=== PATIENT | female | born 1980 ===

== ENCOUNTER 2019-12-23 10:46 | Outpatient (REF) | payer OTHER, SELFPAY ==
[2019-12-24 09:34] LABS: CT PCR NOT DETECTED (Not Detect.); NG PCR NOT DETECTED (Not Detect.)
[2019-12-24 09:54] LABS: BV Int Neg Control Negative (Negative); BV Int Pos Control Positive (Positive)
[2019-12-29 22:51] LABS: HPV 16 RNA NOT DETECTED (NOT DETECTED); HPV mRNA E6/E7 rflx Detected (Not Detected)
== END 2019-12-23 10:47 | disposition home or self-care (01) ==
LOC: HO.LAB 10:46
PROVIDERS: PCP Pediatrics; Visit Provider Obstetrics & Gynecology
DX: Z01.419 Encounter for gynecological examination (general) (routine) without abnormal findings (principal); Z11.3 Encounter for screening for infections with a predominantly sexual mode of transmission; Z97.5 Presence of (intrauterine) contraceptive device
CPT/HCPCS: 87480; 87491; 87510; 87591; 87624; 87625; 87660; 88141; 88142

== ENCOUNTER 2020-06-22 10:03 | Outpatient (REF) | payer OTHER, SELFPAY | END 2020-06-22 10:04 | disposition home or self-care (01) | LOC: HO.LAB 10:03 | PROVIDERS: PCP Pediatrics; Visit Provider Obstetrics & Gynecology | DX: R87.810 Cervical high risk human papillomavirus (HPV) DNA test positive (principal); R87.610 Atypical squamous cells of undetermined significance on cytologic smear of cervix (ASC-US) | CPT/HCPCS: 57454; 81025; 88305; 88342; 88360 ==

== ENCOUNTER → 2020-06-29 11:00 | Outpatient (BNVA) | payer OTHER, SELFPAY | PROVIDERS: PCP Pediatrics; Visit Provider Obstetrics & Gynecology | DX: N87.0 Mild cervical dysplasia (principal) | CPT/HCPCS: Q3014 ==

== ENCOUNTER 2020-07-08 08:16 | Outpatient (REF) | payer OTHER, SELFPAY ==
--- NOTE | ~2020-07-08 | MM_ITS ---
EXAMINATION: MM SCREENING DIGITAL BREAST TOMOSYNTHESIS, BILATERAL CLINICAL INFORMATION: Screening. Asymptomatic. Age 39. No known family history breast cancer. Ultrasound guided biopsy right breast 11/21/2012 (fibroadenoma). Prior report also notes history right breast biopsies for fibroadenomas at 6:00 and 9:00 position 07/16/2001 performed at [facility]. The lifetime risk of breast cancer based on the Tyrer-Cuzick Model is 9%. COMPARISON: Right mammography post biopsy 11/21/2012. TECHNIQUE: Digital breast tomosynthesis is performed in both the craniocaudal and mediolateral oblique views along with computer-aided detection (CAD). Synthesized 2D images are generated from the tomosynthesis. FINDINGS: The breasts are extremely dense, which lowers the sensitivity of mammography (ACR BI-RADS breast composition Category d). The right breast has biopsy clip marker overlying known fibroadenoma posterior 3:30 o'clock position measuring approximately 1.1 x 0.8 cm. There is a stable circumscribed mass retroareolar right breast with interval increased benign internal peripheral bulky calcification consistent with fibroadenoma measuring approximately 1.3 x 1.2 cm. Neither breast shows architectural abnormality. There are no abnormal calcifications. The axilla and skin contours are unremarkable. The left breast has macrolobulated circumscribed mass retroareolar 4:00 position measuring approximately 1.4 x 1.0 x 1.0 cm. This has not been previously reported and s likely another fibroadenoma. Patient will be recalled to further characterize with ultrasound. MM/MM tomosynthesis screening BI IMPRESSION: 1. Left: Macrolobulated circumscribed retroareolar mass 1.4 cm, suspect another fibroadenoma. 2. Right: Chronic right masses retroareolar and posterior medial breast, consistent with fibroadenomas and stable from 2012. ASSESSMENT: BI-RADS 0: Incomplete - Need Additional Imaging Evaluation RECOMMENDATION: 1. Targeted ultrasound left breast. 2. Radiology department staff will contact the patient for additional imaging. This patient's information was entered into a reminder system with a target due date for their next mammogram.
== END 2020-07-08 08:17 | disposition home or self-care (01) ==
LOC: HO.MAMMO 08:16
PROVIDERS: PCP Pediatrics; Visit Provider Obstetrics & Gynecology
DX: Z12.31 Encounter for screening mammogram for malignant neoplasm of breast (principal)
CPT/HCPCS: 77063; 77067

== ENCOUNTER 2020-07-12 07:53 | Outpatient (REF) | payer OTHER, SELFPAY ==
--- NOTE | ~2020-07-12 | US_ITS ---
EXAMINATION: US DIAGNOSTIC ULTRASOUND BREAST, LEFT CLINICAL INFORMATION: Recall from baseline screening for macrolobulated retroareolar mass 1.4 cm. Prior history contralateral right fibroadenoma x2. TC score 9%. COMPARISON: Mammography 07/08/2020. TECHNIQUE: Ultrasound left breast is targeted to the outer periareolar position using grayscale imaging and color Doppler without and with harmonics. FINDINGS: There is a oval macrolobulated circumscribed solid mass 4:00 position 1 cm from nipple with overall dimensions 1.4 x 1.2 x 0.8 cm. Long axis is parallel with the skin. This corresponds to the finding on mammography and is similar to the contralateral fibroadenomas. This most likely represents another fibroadenoma. Results are discussed with the patient at time of visit. Management options discussed with the patient including ultrasound guided core biopsy as well as serial follow-up ultrasound. Patient is comfortable with follow-up ultrasound which is reasonable given the prior history finding contralateral right breast. US/US breast LT limited IMPRESSION: Macrolobulated circumscribed solid mass 4:00 position measuring 1.4 cm, likely fibroadenoma. ASSESSMENT: BI-RADS 3: Probably Benign RECOMMENDATION: Diagnostic left breast ultrasound in 6 months. This patient's information was entered into a reminder system with a target due date for their next mammogram.
== END 2020-07-12 07:54 | disposition home or self-care (01) ==
LOC: HO.MAMMO 07:53
PROVIDERS: Visit Provider Obstetrics & Gynecology
DX: N63.42 Unspecified lump in left breast, subareolar (principal)
CPT/HCPCS: 76642

== ENCOUNTER 2021-01-11 08:53 | Outpatient (REF) | payer OTHER, SELFPAY ==
--- NOTE | ~2021-01-11 | US_ITS ---
EXAMINATION: US DIAGNOSTIC ULTRASOUND BREAST, LEFT CLINICAL INFORMATION: Short interval six-month follow-up probable fibroadenoma lateral retroareolar left breast. Prior history contralateral right fibroadenomas on biopsy 11/21/2012 and two additional right fibroadenomas on remote outside biopsies 07/16/2001. Patient age 40. TC score 9%. COMPARISON: Targeted left breast ultrasound 07/12/2020. TECHNIQUE: Ultrasound left breast is targeted to the outer periareolar region. Grayscale imaging and color Doppler are performed without and with harmonics. FINDINGS: The circumscribed superficial solid mass 4:00 position is stable in size measuring approximately 1.4 cm in greatest dimension. The contours are smooth. There are no interval changes. Results are provided to the patient at time of visit by the technologist. US/US breast LT limited IMPRESSION: Probable fibroadenoma periareolar 4:00 position, stable from prior exam 07/12/2020. ASSESSMENT: BI-RADS 3: Probably Benign RECOMMENDATION: Targeted left breast ultrasound at annual bilateral mammography, due in 6 months. This patient's information was entered into a reminder system with a target due date for their next mammogram.
== END 2021-01-11 08:54 | disposition home or self-care (01) ==
LOC: HO.MAMMO 08:53
PROVIDERS: Visit Provider Pediatrics
DX: N63.23 Unspecified lump in the left breast, lower outer quadrant (principal)
CPT/HCPCS: 76642

== ENCOUNTER 2021-01-25 08:29 | Outpatient (REF) | payer OTHER, SELFPAY ==
[2021-02-04 00:37] LABS: HPV 16 RNA NOT DETECTED (NOT DETECTED); HPV mRNA E6/E7 rflx Detected (Not Detected)
== END 2021-01-25 08:30 | disposition home or self-care (01) ==
LOC: HO.LAB 08:29
PROVIDERS: Visit Provider Advanced Practice Midwife
DX: Z01.411 Encounter for gynecological examination (general) (routine) with abnormal findings (principal); Z11.51 Encounter for screening for human papillomavirus (HPV); D06.9 Carcinoma in situ of cervix, unspecified; L98.9 Disorder of the skin and subcutaneous tissue, unspecified; Z97.5 Presence of (intrauterine) contraceptive device
CPT/HCPCS: 87624; 87625; 88142

== ENCOUNTER → 2021-02-22 12:43 | Outpatient (BNVA) | payer OTHER, SELFPAY | PROVIDERS: Visit Provider Obstetrics & Gynecology | DX: Z01.818 Encounter for other preprocedural examination (principal); D06.9 Carcinoma in situ of cervix, unspecified | CPT/HCPCS: 99212 ==

== ENCOUNTER 2021-03-04 09:07 | Emergency (ER) | payer OTHER, SELFPAY ==
--- NOTE | ~2021-03-04 | XR_ITS ---
EXAMINATION: XR SHOULDER, LEFT CLINICAL INFORMATION: Tendinitis COMPARISON: None TECHNIQUE: AP external rotation, Grashey, scapular Y, and axillary views of the left shoulder. FINDINGS: Bone alignment is normal. No fracture or dislocation is seen. There is significant soft tissue calcification adjacent to the left greater tuberosity suggestive of calcific tendinitis or bursitis. XR/XR shoulder LT min 2V IMPRESSION: Significant soft tissue calcification suggestive of tendinitis or bursitis.
[2021-03-04 09:12] VITALS: BP 182/89; PULSE 142; RESP 18; TEMP 36.3; O2SAT 98; BMI 22.6
--- NOTE | 2021-03-04 09:12 | ECG_ITS ---
Test Reason : l arm pain,hi heart rate Blood Pressure : / mmHG Vent. Rate : 139 BPM Atrial Rate : 139 BPM P-R Int : 130 ms QRS Dur : 074 ms QT Int : 264 ms P-R-T Axes : 069 083 068 degrees QTc Int : 401 ms Sinus tachycardia Possible Left atrial enlargement Borderline ECG No previous ECGs available Referred By: Generic ED Physician Electronically Signed By:JACK RAMOS MD
--- NOTE | 2021-03-04 09:25 | ED_ITS ---
HPI - Extremity Problem General Chief complaint: Extremity Injury, Upper Stated complaint: l arm pain Time Seen by Provider: 03/04/21 09:25 Source: patient Mode of arrival: ambulatory Limitations: no limitations History of Present Illness HPI Narrative: Left arm pain for 3 days. Denies palpitations. Denies shortness of breath. Denies dizziness, no chest pain. MD Complaint: extremity pain Onset (ago): day(s) Pain Consistency: constant Location: left Quality: sharp Radiation: none Relieving factors: nothing Exacerbating factors: range of motion Associated symptoms: denies other symptoms Related Data Home Medications Medication Instructions Recorded Confirmed levonorgestrel 20 mcg/24 hours (7 INTRAUTERINE 01/25/21 01/25/21 yrs) 52 mg intrauterine device (Mirena) Previous Rx's Medication Instructions Recorded naproxen 500 mg tablet (Naprosyn) 500 mg PO BID #20 tab 03/04/21 Allergies Allergy/AdvReac Type Severity Reaction Status Date / Time No Known Allergies Allergy Verified 03/04/21 09:12 Review of Systems Verdana 4l Constitutional: Verdana 4d Constitutional: Verdana 4d Verdana 4d Reports no additional constitutional complaints Verdana 4l Eyes: Verdana 4d Verdana 4d Eyes: Verdana 4d Reports no additional eye complaints Verdana 4l ENT: Verdana 4d Denies dizziness Verdana 4l Cardiovascular: Verdana 4d Cardiovascular: Verdana 4d Verdana 4d Reports no additional cardiovascular complaints Verdana 4l Respiratory: Verdana 4d Verdana 4d Respiratory: Verdana 4d Reports as per HPI Verdana 4l Gastrointestinal: Verdana 4d Gastrointestinal: Verdana 4d Verdana 4d Reports no additional gastrointestinal complaints Verdana 4l Genitourinary: Verdana 4d Verdana 4d Genitourinary: Verdana 4d Reports no additional female genitourinary complaints Verdana 4l Musculoskeletal: Verdana 4d Musculoskeletal: Verdana 4d Verdana 4d Reports no additional musculoskeletal complaints Verdana 4l Integumentary/Breasts: Verdana 4d Skin/Breast: Verdana 4d Verdana 4d Denies rash Verdana 4l Neurologic: Verdana 4d Reports system reviewed and no additional complaints, except as documented, Denies dizziness and Denies Sensory deficit (Neuro) Verdana 4l Psychiatric: Verdana 4d Verdana 4d Psychiatric: Verdana 4d Denies anxiety [facility] Past Medical History Medical History No pertinent past medical history Surgical History H/O breast biopsy History of loop electrical excision procedure (LEEP) Social History Social History Alcohol intake: never Patient Tobacco Use Status: Never used Tobacco Use of substances other than those prescribed or required for medical reasons: No Advance Directives: No Advance Directives Information Provided: No Sexual orientation: Straight/Heterosexual Gender identity: Female Physical Exam Verdana 4l Vital Signs: Verdana 4d Verdana 4d Vital Signs: Verdana 4d Verdana 4Bd Last Vital Signs Verdana 4d Quality Consultant New 4d Quality Consultant New 4d Temp 97.8 F 03/04/21 10:19 Quality Consultant New 4d Pulse 129 H 03/04/21 10:19 Quality Consultant New 4d Resp 25 H 03/04/21 10:19 BP 180/85 H 03/04/21 10:19 Pulse Ox 98 03/04/21 10:19 BMI result Body Mass Index 22.6 Const: Other: very anxious tearful Nutritional Appearance: average body habitus Orientation/consciousness: oriented to person and patient oriented x3 Limitations: no limitations HENMT: Head: Yes normal to inspection Ears: external ears normal General nose exam: Normal external nose present Mouth: Normal oral and palatal mucosa present and oropharynx normal Throat: Yes posterior oropharynx normal Eyes: General: appearance normal, both eyes and all related structures Neck: Other: supple Neck: Yes normal visual inspection Chest: Chest palpation & inspection: normal inspection of the chest Resp: Auscultation: clear to auscultation bilaterally Cardio: Other: tachycardia Jugular venous distension: no JVD Rate: regular rate Rhythm: regular rhythm Heart sounds: S1 normal heart sound present and S2 normal heart sound present GI: Inspection: Yes normal to inspection Palpation (GI): Soft to palpation, nontender and No hepatosplenomegaly present Auscultation: normal bowel sounds : General: Yes no CVA tenderness Back/Spine/Pelvis: Back: no CVA tenderness Skin: General skin exam: no rashes or lesions noted Neuro: General: oriented to person and patient oriented x3 Cranial nerves: Yes CN's II-XII intact bilaterally Motor exam (neuro): 5/5 motor strength present throughout Sensory Exam: No Sensory deficit (Neuro) Extrem: Other: no effusion or swelling to shoulder, left bicep tendon pain to palpation unable to externally rotate shoulder, decreased range of motion of shoulder. Psych: Appearance: grossly normal Course Course Course Narrative: patient with a lot of cardiac variabilty, do not suspect that this is primary cardiac, patient is very nervous Reevaluation(s) Reevaluation #1: patient with much more calcification than I expected, will treat for tendinitis and refer to ortho Time: 10:48 MDM - Extremity (Nontraumatic) Imaging Data shoulder: Radiologist's impression: FINDINGS: Bone alignment is normal. No fracture or dislocation is seen. There is significant soft tissue calcification adjacent to the left greater tuberosity suggestive of calcific tendinitis or bursitis.? XR/XR shoulder LT min 2V IMPRESSION: Significant soft tissue calcification suggestive of tendinitis or bursitis. ECG Data Attestation EKG: I personally reviewed and interpreted this ECG as follows: Interpretation: sinus takchycardia 140, no st or twave changes Discharge Plan Discharge Clinical Impression: Tendinitis Patient Disposition: Home, Self-Care Instructions: Tendinitis (ED) Prescriptions: New naproxen [Naprosyn] 500 mg tablet 500 mg PO BID Qty: 20 0RF No Action Mirena 20 mcg/24 hours (7 yrs) 52 mg intrauterine device intrauterine 0RF Referrals: Joe Salinas MD [Physician] - 10 days
[2021-03-04 09:30] VITALS: BP 194/96; PULSE 144; RESP 22; TEMP 36.8; O2SAT 97
[2021-03-04] MEDS: Ketorolac Tromethamine 60 MG/2 ML VIAL IM (10:01)
[2021-03-04 10:19] VITALS: BP 180/85; PULSE 129; RESP 25; TEMP 36.6; O2SAT 98
[2021-03-04 11:10] VITALS: BP 153/79; PULSE 93; RESP 20; O2SAT 97
== END 2021-03-04 11:20 | disposition home or self-care (01) ==
PROVIDERS: Emergency Provider Emergency Medicine; PCP Pediatrics
DX: M79.622 Pain in left upper arm (principal); R00.0 Tachycardia, unspecified; Z79.899 Other long term (current) drug therapy
CPT/HCPCS: 73030; 93005; 96372; 99284; J1885

== ENCOUNTER 2021-03-08 06:00 | Day surgery (SDC) | payer OTHER, SELFPAY ==
[2021-03-02 14:17] VITALS: BMI 20.9
--- NOTE | 2021-03-07 09:04 | HO.ANESPROP2 ---
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 (Acute) Skin lesion (Acute) Well woman exam with routine gynecological exam (Acute) Presence of 52 mg levonorgestrel-releasing intrauterine device (IUD) (Acute) Past Medical History Medical History No pertinent past medical history Surgical History Surgical History H/O breast biopsy History of loop electrical excision procedure (LEEP) Social History Social History Alcohol intake: never Patient Tobacco Use Status: Never used Tobacco Use of substances other than those prescribed or required for medical reasons: No Are you DNR?: No Advance Directives: No Advance Directives Information Provided: Yes Sexual orientation: Straight/Heterosexual Gender identity: Female Meds Allergies Allergy/AdvReac Type Severity Reaction Status Date / Time No Known Allergies Allergy Verified 03/04/21 09:12 Home Medications Medication Instructions Recorded Confirmed Last Taken Type levonorgestrel 20 mcg/24 hours (7 INTRAUTERINE 01/25/21 01/25/21 Unknown History yrs) 52 mg intrauterine device (Mirena) Exam Exam Date and Time: March 07, 2021 0904 Height,Weight and Vital Signs: Height 5 ft 6 in Weight 58.684 kg Assessment and Plan Assessment Anesthesia Assessment: Chart Reviewed Documented by User: Norma Euceda MD 03/08/21 07:17 PMFSH Past Medical History Medical History No pertinent past medical history Family History Family history of problems with anesthesia: No Surgical History Surgical History H/O breast biopsy History of loop electrical excision procedure (LEEP) History of Problems with Anesthesia: No Social History Social History Alcohol intake: never Patient Tobacco Use Status: Never used Tobacco Use of substances other than those prescribed or required for medical reasons: No Are you DNR?: No Advance Directives: No Advance Directives Information Provided: Yes Sexual orientation: Straight/Heterosexual Gender identity: Female Meds Allergies Allergy/AdvReac Type Severity Reaction Status Date / Time No Known Allergies Allergy Verified 03/04/21 09:12 Home Medications Medication Instructions Recorded Confirmed Last Taken Type levonorgestrel 20 mcg/24 hours (7 INTRAUTERINE 01/25/21 01/25/21 Unknown History yrs) 52 mg intrauterine device (Mirena) Exam Airway Mallampati Class: III TM Dist: >3cm Neck ROM: Full Assessment and Plan Assessment Anesthesia Assessment: Anesthesia Plan Discussed Final Anesthetic Review Family History of Problems with Anesthesia: No History of Problems with Anesthesia: No NPO: Yes ASA Class: II Final Preanesthetic Review: No Changes in Pt Med Stat, Meds/Allgs Chart Reviewed, Consent Obtained/Reviewed and Anes Risks/Benef Reviewed Patient Risk: Low Procedure Risk: Low Anesthetic Plan Anesthetic Plan: GA Disposition: Standard PACU
[2021-03-08 06:47] LABS: UPreg QC Valid YES
[2021-03-08 06:49] LABS: Urine Pregnancy NEGATIVE (NEGATIVE)
[2021-03-08 07:04] VITALS: BP 164/89; PULSE 127; RESP 18; TEMP 36.2; O2SAT 98
--- NOTE | 2021-03-08 07:07 | PC.NURSE ---
Addendum entered by Danyelle Akhtar RN 03/08/21 07:22: Anesthesia Dr Euceda aware Original Note: Left eye ptosis noted, when asked about history patient stated its always like that, since maybe 3 months ago. She attests to having PCP work it up and stated said theres nothing wrong inside Neuro exam WNL, both eyes brisk and equal, 3. No other left sided weakness. Left arm ROM slightly limited due to shoulder pain but able to move.
[2021-03-08] MEDS: Lactated Ringers 1,000 ML 100 ML IVCONT (07:20)
--- NOTE | 2021-03-08 07:38 | MHC.SHP ---
Pre-Procedural Eval Section A Date of Service: 03/08/21 The patient is an INPATIENT: No Changes since office visit: No Cold of Flu in the past 2 weeks, No New Medical Problems, No Changes in Medication and No Patient answered all questions The History & Physical has been completed within 30 days and I have reviewed it.: Yes Section B Chief Complaint: JENAE 3 Allergies: Allergies Allergy/AdvReac Type Severity Reaction Status Date / Time No Known Allergies Allergy Verified 03/04/21 09:12 Plan Diagnosis/Plan: Unchanged I have reviewed the history and physical and performed a pertinent physical examination on my patient. No changes have occurred unless specified.
--- NOTE | 2021-03-08 08:01 | PM.OP ---
Brief Operative Note Date of Service: 03/08/21 Pre-op diagnosis: JENAE 3 Post-op diagnosis: same Procedure: LEEP CONE with post CONE ECC Surgeon: Trever Ruiz MD Anesthesia: local and other (Paracervical block) Was an Infant Toddler Lead Teacher used for this Procedure?: No Estimated blood loss (mL): 0 Pathology: other (Cervical cone, 2nd pass Ant Cerv lip, Endocx, Post cone ECC) Condition: stable Disposition: other (Home)
--- NOTE | 2021-03-08 08:02 | W.PM.OPN ---
Operative Note Operative Note Date of Service: 03/08/21 Narrative: Preop diagnosis: JENAE 3 Operation: LEEP cone with post cone ECC Post op diagnosis: same Anesthesia: paracervical block, IV sedation Complications: none Pathology: Cervical cone with 12:00 o'clock suture, 2nd pass Anterior cervical lip with endocervix & post cone RCC QBL: minimal Procedure: The patient was put in the dorsal lithotomy position, was prepped and draped in the usual sterile fashion. A sterile speculum was inserted inside the patient vagina. Using Lugol solution the cervix with Dyed with Lugol solution to identifiy the abnormal demarcating line. 10 cc of Marcaine0.5% with epinephrine were given at 2,4 , 8, and 10 o'clock. Using a medium-size loop wire, the cervical cone was excised, been marked at 12:00 o'clock with a suture, this was followed by excision of a 2nd pass anterior cervical lip , followed by endocervix, and post cone ECC .Hemostasis was assured using cautery and Monsel solution. All instruments were taken out of the patient's vaginal cavity. the patient tolerated the procedure well and was discharged home with the following instructions: call if temperature is above 100.4, vaginal bleeding, abdominal pain or nausea or vomiting. Follow-up in the office in 2 weeks for postop visit
[2021-03-08 08:14] VITALS: BP 162/88; PULSE 110; RESP 16; TEMP 37.1; O2SAT 100
[2021-03-08 08:19] VITALS: BP 135/85; PULSE 99; RESP 20; O2SAT 100
[2021-03-08 08:23] VITALS: BP 150/84; PULSE 89; RESP 18; O2SAT 97
[2021-03-08 08:29] VITALS: BP 150/84; PULSE 93; RESP 18; TEMP 36.7; O2SAT 97
== END 2021-03-08 09:15 | disposition home or self-care (01) ==
PROVIDERS: Visit Provider Obstetrics & Gynecology
PROC: 0UBC7ZZ Excision of Cervix, Via Natural or Artificial Opening (ICD-10-PCS; CPT 57522; principal; 2021-03-08 07:30)
DX: N87.0 Mild cervical dysplasia (principal)
CPT/HCPCS: 57522; 81025; 88305; 88307; 88342; 88360; J1100; J1885; J2250; J2405; J3010

== ENCOUNTER → 2021-03-22 15:48 | Outpatient (BNVA) | payer OTHER, SELFPAY | PROVIDERS: Visit Provider Obstetrics & Gynecology ==

== ENCOUNTER → 2021-04-12 08:48 | Outpatient (BNVA) | payer OTHER, SELFPAY | PROVIDERS: PCP Pediatrics; Visit Provider Physician Assistant | DX: M75.102 Unspecified rotator cuff tear or rupture of left shoulder, not specified as traumatic (principal) | CPT/HCPCS: 99202; J1040 ==

== ENCOUNTER 2021-07-27 13:18 | Outpatient (REF) | payer OTHER, SELFPAY ==
--- NOTE | ~2021-07-27 | MM_ITS ---
EXAMINATION: MM DIAGNOSTIC DIGITAL BREAST TOMOSYNTHESIS, BILATERAL US DIAGNOSTIC ULTRASOUND BREAST, LEFT CLINICAL INFORMATION: Due for yearly. Also follow-up probable fibroadenoma retroareolar left breast. Prior history right breast fibroadenomas confirmed on biopsy 11/21/2012 and 07/16/2001. The lifetime risk of breast cancer based on the Tyrer-Cuzick Model is 9%. COMPARISON: Mammography: 07/08/2020, unilateral right mammography 11/21/2002. TECHNIQUE: Digital breast tomosynthesis is performed in both the craniocaudal and mediolateral oblique views along with computer-aided detection (CAD). Synthesized 2D images are generated from the tomosynthesis. Ultrasound left breast is targeted to the retroareolar breast using grayscale imaging and color Doppler without and with harmonics. FINDINGS: The breasts are heterogeneously dense, which may obscure small masses (ACR BI-RADS breast composition Category c). Parenchymal pattern is similar to prior exam. There are known fibroadenomas with overlying biopsy clip markers anterior right breast and posterior 3:00 right breast. The retroareolar mass left 4:00 position appears stable in size. Contours are smooth macrolobulated. There is no interval new mass or developing density or architectural abnormality. No abnormal calcifications. The axilla and skin contours are unremarkable. Ultrasound left breast demonstrates macrolobulated solid mass just beneath the skin anterior 4:00 position similar in size and shape to prior studies, measuring under 1.5 cm. No interval new finding. Results are provided to the patient at time of visit by the technologist. Management plan is for diagnostic left breast ultrasound at time of next bilateral annual mammography, due in 12 months. MM/MM tomosynthesis diagnostic BI IMPRESSION: -Mammography shows no significant change from prior exam. -Known right fibroadenomas stable. -Left retroareolar mass stable, probable fibroadenoma. Continue to follow. ASSESSMENT: BI-RADS 3: Probably Benign RECOMMENDATION: Diagnostic left ultrasound at time of annual bilateral diagnostic mammography, due in 12 months. This patient's information was entered into a reminder system with a target due date for their next mammogram.
== END 2021-07-27 13:19 | disposition home or self-care (01) ==
LOC: HO.MAMMO 13:18
PROVIDERS: Visit Provider Pediatrics
DX: D24.2 Benign neoplasm of left breast (principal)
CPT/HCPCS: 76642; 77062; 77066

== ENCOUNTER → 2021-09-06 07:47 | Outpatient (BNVA) | payer OTHER, SELFPAY | PROVIDERS: PCP Pediatrics; Visit Provider Internal Medicine Endocrinology, Diabetes & Metabolism | DX: E05.90 Thyrotoxicosis, unspecified without thyrotoxic crisis or storm (principal) | CPT/HCPCS: 99202 ==

== ENCOUNTER 2021-09-06 08:29 | Outpatient (REF) | payer OTHER, SELFPAY ==
[2021-09-06 09:42] LABS: Free T4 (Free Thyroxine) 2.02 ng/dL (0.71-1.85); Thyroid Stimulating Hormone < 0.01 uIU/mL (0.32-4.0)
[2021-09-07 07:33] LABS: Triiodothyronine T3 Free 9.4 pg/mL (2.3-4.2)
[2021-09-09 21:36] LABS: Thyrotropin Receptor Antibody 4.97 IU/L (<=2.00)
== END 2021-09-06 08:30 | disposition home or self-care (01) ==
LOC: HO.LAB 08:29
PROVIDERS: PCP Pediatrics; Visit Provider Internal Medicine Endocrinology, Diabetes & Metabolism
DX: E05.90 Thyrotoxicosis, unspecified without thyrotoxic crisis or storm (principal)
CPT/HCPCS: 36415; 83520; 84439; 84443; 84481

== ENCOUNTER 2021-12-02 09:18 | Outpatient (REF) | payer OTHER, SELFPAY ==
[2021-12-02 09:31] LABS: MANUAL DIFF FLAG NO
[2021-12-02 10:14] LABS: Basophils Absolute Auto 0.1 X10*3/uL (0.0-0.2); Basophils Percent Auto 0.5 % (0-2); Eosinophils Absolute Auto 1.8 X10*3/uL (0.0-0.4); Eosinophils Percent Auto 18.8 % (0-4); Hematocrit 39.6 % (37.0-47.0); Hemoglobin 12.5 g/dl (12.0-16.0); Imm Gran Abs Auto 0.03 X10*3/uL (0.00-0.03); Imm Gran Pct Auto 0.3 % (0.0-0.4); Lymphocytes Absolute Auto 2.5 X10*3/uL (1.2-4.9); Lymphocytes Percent Auto 25.9 % (20-40); Mean Corpuscular HGB Conc 31.6 g/dl (31.0-35.0); Mean Corpuscular Hemoglobin 26.3 pg (27.0-33.0); Mean Corpuscular Volume 83.2 fL (80.0-98.0); Mean Platelet Volume 9.7 fL (9.4-12.3); Monocytes Absolute Auto 0.7 X10*3/uL (0.1-1.2); Monocytes Percent Auto 7.2 % (2-11); Neutrophils Absolute Auto 4.6 x10*3/uL (2.0-8.3); Neutrophils Percent Auto 47.3 % (45-73); Platelet Count 476 X10*3/uL (160-400); Red Blood Count 4.76 X10*6/uL (4.20-5.50); Red Cell Distribution Width 13.3 % (11.0-16.0); White Blood Count 9.7 X10*3/uL (4.8-10.8)
[2021-12-02 10:54] LABS: Alanine Aminotransferase 28 U/L (0-31); Alkaline Phosphatase 276 U/L (39-117); Aspartate Amino Transferase 19 U/L (5-31); Bilirubin Direct 0.2 mg/dL (0.0-0.5); Bilirubin Total 0.5 mg/dL (0.0-1.0); Total Protein 7.5 g/dL (6.5-8.0)
[2021-12-02 11:05] LABS: Free T4 (Free Thyroxine) 2.36 ng/dL (0.71-1.85); Thyroid Stimulating Hormone < 0.01 uIU/mL (0.32-4.0)
[2021-12-04 07:56] LABS: Triiodothyronine T3 Free 9.3 pg/mL (2.3-4.2)
== END 2021-12-02 09:19 | disposition home or self-care (01) ==
LOC: HO.LAB 09:18
PROVIDERS: PCP Pediatrics; Visit Provider Internal Medicine Endocrinology, Diabetes & Metabolism
DX: E05.90 Thyrotoxicosis, unspecified without thyrotoxic crisis or storm (principal)
CPT/HCPCS: 36415; 80076; 84439; 84443; 84481; 85025

== ENCOUNTER → 2021-12-07 08:45 | Outpatient (BNVA) | payer OTHER, SELFPAY | PROVIDERS: PCP Pediatrics; Visit Provider Internal Medicine Endocrinology, Diabetes & Metabolism | DX: E05.90 Thyrotoxicosis, unspecified without thyrotoxic crisis or storm (principal) | CPT/HCPCS: 99212 ==

== ENCOUNTER 2022-01-18 08:05 | Outpatient (REF) | payer OTHER, SELFPAY ==
[2022-01-18 09:28] LABS: Basophils Absolute Auto 0.1 X10*3/uL (0.0-0.2); Basophils Percent Auto 1.1 % (0-2); Eosinophils Absolute Auto 1.7 X10*3/uL (0.0-0.4); Eosinophils Percent Auto 20.3 % (0-4); Hematocrit 42.6 % (37.0-47.0); Hemoglobin 13.9 g/dl (12.0-16.0); Imm Gran Abs Auto 0.02 X10*3/uL (0.00-0.03); Imm Gran Pct Auto 0.2 % (0.0-0.4); Lymphocytes Absolute Auto 1.6 X10*3/uL (1.2-4.9); Lymphocytes Percent Auto 19.2 % (20-40); MANUAL DIFF FLAG SCAN; Mean Corpuscular HGB Conc 32.6 g/dl (31.0-35.0); Mean Corpuscular Volume 82.7 fL (80.0-98.0); Mean Platelet Volume 9.5 fL (9.4-12.3); Monocytes Absolute Auto 0.5 X10*3/uL (0.1-1.2); Monocytes Percent Auto 5.5 % (2-11); Neutrophils Absolute Auto 4.5 x10*3/uL (2.0-8.3); Neutrophils Percent Auto 53.7 % (45-73); Platelet Count 495 X10*3/uL (160-400); Red Blood Count 5.15 X10*6/uL (4.20-5.50); Red Cell Distribution Width 13.5 % (11.0-16.0); SCAN SMEAR FLAG 1; White Blood Count 8.4 X10*3/uL (4.8-10.8)
[2022-01-18 09:58] LABS: SLIDE REVIEW VERIFIED
[2022-01-18 10:20] LABS: Alanine Aminotransferase 27 U/L (0-31); Albumin Level 4.3 g/dL (3.5-5.0); Alkaline Phosphatase 202 U/L (39-117); Aspartate Amino Transferase 17 U/L (5-31); Bilirubin Direct 0.2 mg/dL (0.0-0.5); Bilirubin Total 0.8 mg/dL (0.0-1.0); Free T4 (Free Thyroxine) 1.41 ng/dL (0.71-1.85); Thyroid Stimulating Hormone < 0.01 uIU/mL (0.32-4.0); Total Protein 7.4 g/dL (6.5-8.0)
== END 2022-01-18 08:06 | disposition home or self-care (01) ==
LOC: HO.LAB 08:05
PROVIDERS: Visit Provider Internal Medicine Endocrinology, Diabetes & Metabolism
DX: E05.90 Thyrotoxicosis, unspecified without thyrotoxic crisis or storm (principal)
CPT/HCPCS: 36415; 80076; 84439; 84443; 84481; 85025

== ENCOUNTER → 2022-02-08 08:02 | Outpatient (BNVA) | payer OTHER, SELFPAY | PROVIDERS: PCP Pediatrics; Visit Provider Internal Medicine Endocrinology, Diabetes & Metabolism | DX: E05.90 Thyrotoxicosis, unspecified without thyrotoxic crisis or storm (principal) | CPT/HCPCS: 99212 ==

== ENCOUNTER 2022-03-01 08:48 | Outpatient (REF) | payer OTHER, SELFPAY ==
[2022-03-03 17:58] LABS: HPV mRNA E6/E7 rflx Not Detected (Not Detected)
== END 2022-03-01 08:49 | disposition home or self-care (01) ==
LOC: HO.LNP 08:48
PROVIDERS: PCP Pediatrics; Visit Provider Obstetrics & Gynecology
DX: R87.810 Cervical high risk human papillomavirus (HPV) DNA test positive (principal); D06.9 Carcinoma in situ of cervix, unspecified
CPT/HCPCS: 57454; 81025; 87624; 88142; 88305; 88342; 88360; 99212

== ENCOUNTER → 2022-05-17 08:41 | Outpatient (BNVA) | payer OTHER, SELFPAY | PROVIDERS: PCP Pediatrics; Visit Provider Obstetrics & Gynecology | DX: R87.610 Atypical squamous cells of undetermined significance on cytologic smear of cervix (ASC-US) (principal); R87.810 Cervical high risk human papillomavirus (HPV) DNA test positive | CPT/HCPCS: 99212 ==

== ENCOUNTER 2022-06-02 07:27 | Outpatient (REF) | payer OTHER, SELFPAY ==
[2022-06-02 07:41] LABS: MANUAL DIFF FLAG NO
[2022-06-02 07:54] LABS: Basophils Absolute Auto 0.1 X10*3/uL (0.0-0.2); Eosinophils Absolute Auto 1.3 X10*3/uL (0.0-0.4); Eosinophils Percent Auto 19.3 % (0-4); Hematocrit 42.2 % (37.0-47.0); Hemoglobin 13.9 g/dl (12.0-16.0); Imm Gran Abs Auto 0.01 X10*3/uL (0.00-0.03); Imm Gran Pct Auto 0.1 % (0.0-0.4); Lymphocytes Absolute Auto 1.9 X10*3/uL (1.2-4.9); Lymphocytes Percent Auto 28.1 % (20-40); Mean Corpuscular HGB Conc 32.9 g/dl (31.0-35.0); Mean Corpuscular Hemoglobin 28.1 pg (27.0-33.0); Mean Corpuscular Volume 85.3 fL (80.0-98.0); Mean Platelet Volume 8.9 fL (9.4-12.3); Monocytes Absolute Auto 0.4 X10*3/uL (0.1-1.2); Monocytes Percent Auto 5.7 % (2-11); Neutrophils Absolute Auto 3.1 x10*3/uL (2.0-8.3); Neutrophils Percent Auto 45.8 % (45-73); Platelet Count 411 X10*3/uL (160-400); Red Blood Count 4.95 X10*6/uL (4.20-5.50); White Blood Count 6.7 X10*3/uL (4.8-10.8)
[2022-06-02 08:29] LABS: Alanine Aminotransferase 21 U/L (0-31); Albumin Level 4.1 g/dL (3.5-5.0); Alkaline Phosphatase 127 U/L (39-117); Aspartate Amino Transferase 14 U/L (5-31); Bilirubin Direct 0.2 mg/dL (0.0-0.5); Bilirubin Total 0.8 mg/dL (0.0-1.0)
[2022-06-02 09:19] LABS: Free T4 (Free Thyroxine) 0.88 ng/dL (0.71-1.85); Thyroid Stimulating Hormone < 0.01 uIU/mL (0.32-4.0)
[2022-06-04 02:19] LABS: Triiodothyronine T3 Free 3.5 pg/mL (2.3-4.2)
== END 2022-06-02 07:28 | disposition home or self-care (01) ==
LOC: HO.LAB 07:27
PROVIDERS: PCP Pediatrics; Visit Provider Internal Medicine Endocrinology, Diabetes & Metabolism
DX: E05.90 Thyrotoxicosis, unspecified without thyrotoxic crisis or storm (principal)
CPT/HCPCS: 36415; 80076; 84439; 84443; 84481; 85025

== ENCOUNTER 2022-06-14 14:25 | Outpatient (REF) | payer OTHER, SELFPAY ==
[2022-06-14 16:46] LABS: Alanine Aminotransferase 24 U/L (0-31); Albumin Level 4.4 g/dL (3.5-5.0); Alkaline Phosphatase 126 U/L (39-117); Aspartate Amino Transferase 16 U/L (5-31); Bilirubin Direct 0.1 mg/dL (0.0-0.5); Bilirubin Total 0.4 mg/dL (0.0-1.0); Total Protein 7.6 g/dL (6.5-8.0)
== END 2022-06-14 14:26 | disposition home or self-care (01) ==
LOC: HO.LAB 14:25
PROVIDERS: PCP Pediatrics; Visit Provider Internal Medicine Endocrinology, Diabetes & Metabolism
DX: E05.90 Thyrotoxicosis, unspecified without thyrotoxic crisis or storm (principal); Z79.899 Other long term (current) drug therapy
CPT/HCPCS: 36415; 80076; 99212

== ENCOUNTER 2022-08-14 13:22 | Emergency (ER) | payer OTHER, SELFPAY ==
--- NOTE | ~2022-08-14 | CT_ITS ---
EXAMINATION: CT HEAD WITHOUT CONTRAST CLINICAL INFORMATION: Dizziness. COMPARISON: None TECHNIQUE: Contiguous axial imaging was performed from the skull base to vertex without intravenous administration of contrast. This CT examination was performed using dose optimization techniques as appropriate, variously including the following: *Automated exposure control *Adjustment of mA and/or kV according to patient size (this includes techniques or standardized protocols for targeted exams where dose is matched to indication/reason for exam; i.e. extremities or head) *Use of iterative reconstruction technique DLP: 568 mGy-cm FINDINGS: There is no evidence of acute intracranial hemorrhage or edematous territorial infarction. There is no abnormal attenuation within the brain parenchyma. Robert-white matter differentiation is preserved. The ventricles are normal in size and configuration. No evidence for obstructive hydrocephalus. No abnormal mass effect or midline shift. No extra-axial fluid collections. No acute soft tissue or osseous abnormalities. Small air-fluid level in the right sphenoidal sinus. Mucous retention cyst in the left frontal sinus. Additional paranasal sinuses, mastoids and middle ear cavities are clear. CT/CT head/brain wo IV con IMPRESSION: 1. No evidence of acute intracranial hemorrhage or edematous territorial infarction. 2. Small air-fluid level in the right sphenoidal sinus. Correlate clinically for acute sinusitis.
[2022-08-14 13:44] VITALS: BP 152/88; PULSE 95; RESP 15; TEMP 36.6; O2SAT 98; BMI 24.4
--- NOTE | 2022-08-14 13:44 | ED.GENADULT ---
HPI - General Adult General Chief complaint: General Medical Stated complaint: Near syncope/headache dizzy Time Seen by Provider: 08/14/22 20:51 Related Data Home Medications Medication Instructions Recorded Confirmed levonorgestrel 21 mcg/24 hours (8 intrauterine 01/25/21 02/08/22 yrs) 52 mg intrauterine device (Mirena) Previous Rx's Medication Instructions Recorded naproxen 500 mg tablet (Naprosyn) 500 mg PO BID #20 tabs 03/04/21 methimazole 10 mg tablet 15 mg PO DAILY #30 tabs 06/05/22 meclizine 12.5 mg tablet 12.5 mg PO TID PRN vertigo #60 tabs 08/14/22 Allergies Allergy/AdvReac Type Severity Reaction Status Date / Time No Known Allergies Allergy Verified 08/14/22 13:43 Review of Systems Review of Systems: Review of systems: General: Patient denies any fever chills recent illness or falls Musculoskeletal: Denies back pain or body aches or other injuries HEENT: denies headache, runny nose, ear pain Respiratory: denies shortness of breath, cough Cardiovascular: no chest pain or palpitations : denies dysuria, frequency Abdomen: no nausea vomiting denies abdominal pain Extremities: no swelling, no pain Skin: no diaphoresis Yes all other systems are reviewed and are negative PMFSH Past Medical History Medical History Hyperthyroidism No pertinent past medical history Surgical History H/O breast biopsy History of loop electrical excision procedure (LEEP) Family History Family History Other No known health problems Social History Social History Household Members: Spouse and Children Household Members Other:: , 3 kids Alcohol intake: never Patient Tobacco Use Status: Never used Tobacco Advance Directives: No Advance Directives Information Provided: No Current occupational status: employed 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 Patient is alert and oriented to person place and time. Patient has no dysphagia or dysarthia, denies good vision in all four vision szymanski no nystagmus on exam, good strength to upper and lower extremities with normal reflexes to brachioradialis, wrist, patella and achilles. Negative romberg, good finger to nose and heel to medrano. General: Well-appearing well-nourished in no signs of distress HEENT: Normocephalic atraumatic Neck: No signs of JVD, no masses no tenderness or lymphadenopathy Cardiovascular: Regular rate and rhythm Respiratory: Clear to auscultation bilaterally Abdomen: Soft nontender no masses Extremities: Normal pedal pulses no signs of edema Skin: Dry warm no rashes Back: No tenderness full ROM Course Course Course Narrative: This is an RME: Additional HPI, ROS, PE not included below will be deferred to primary provider. Patient is a 41 yo F with PMH of hyperthyroidism presents with near syncope 30 minutes ago, chest pain since yesterday and headache that feels like something is pinching her. Patient denies fever, chills, night sweats, shortness of breath, numbness, tingling, nausea, vomiting Plan: labs Procedures Procedure Narrative Procedure Narrative: Patient very positive Adriana-Hallpike maneuver was able to do Tia maneuver with resolution of the patient's symptoms. Medical Decision Making Medical Decision Making [facility] Narrative: I will check labs reassess patient was sent of TSH Differential Diagnosis Differential Diagnoses: The differential diagnosis associated with the presentation includes Benign positional paroxysmal vertigo brain mass vertigo labyrinthitis Hyper versus hypothyroidism altered mental status anxiety electrolyte abnormality dehydration syncope Admission/Observation Consideration of admission/observation: Escalation of care including admission/observation considered Lab Data [facility] Lab Attestation statement: I reviewed the patient's lab results. Labs look completely normal her baseline TSH is patient is on medications for thyroid 08/14/22 13:41 08/14/22 13:41 Labs: Lab Results 08/14/22 08/14/22 08/14/22 Range/Units 13:41 13:41 13:41 WBC 9.1 (4.8-10.8) X10*3/uL RBC 4.75 (4.20-5.50) X10*6/uL Hgb 13.7 (12.0-16.0) g/dl Hct 40.9 (37.0-47.0) % MCV 86.1 (80.0-98.0) fL MCH 28.8 (27.0-33.0) pg MCHC 33.5 (31.0-35.0) g/dl RDW 13.3 (11.0-16.0) % Plt Count 389 (160-400) X10*3/uL MPV 9.1 L (9.4-12.3) fL Immature Gran % (Auto) 0.2 (0.0-0.4) % Neut % (Auto) 59.2 (45-73) % Lymph % (Auto) 24.9 (20-40) % [place] % (Auto) 5.2 (2-11) % Eos % (Auto) 10.1 H (0-4) % Baso % (Auto) 0.4 (0-2) % Lymph # (Auto) 2.3 (1.2-4.9) X10*3/uL [place] # (Auto) 0.5 (0.1-1.2) X10*3/uL Eos # (Auto) 0.9 H (0.0-0.4) X10*3/uL Baso # (Auto) 0.0 (0.0-0.2) X10*3/uL Abs Immat Gran (auto) 0.02 (0.00-0.03) X10*3/uL Absolute Neuts (auto) 5.4 (2.0-8.3) x10*3/uL Absolute Nucleated RBC 0.000 (0.0-0.012) X10*3/uL Nucleated RBC % (auto) 0.0 (0.0-0.2) /100WBC D-Dimer High Sensitivty NG/ML Sodium 137 (135-145) mmol/L Potassium 4.3 (3.3-5.1) mmol/L Chloride 106 (96-108) mmol/L Carbon Dioxide 20 L (22-29) mmol/L Anion Gap 15 (12-20) BUN 13 (9-16) mg/dL Creatinine 0.77 (0.5-1.4) mg/dL Estim Creat Clear Calc 78.7 Estimated GFR > 60 Random Glucose 103 (60-115) mg/dL Calcium 9.0 (8.4-10.2) mg/dL Magnesium 2.0 (1.6-2.6) mg/dL Total Bilirubin 0.6 (0.0-1.0) mg/dL AST 20 (5-31) U/L ALT 32 H (0-31) U/L Alkaline Phosphatase 113 (39-117) U/L Troponin I High Sens < 2.7 (<3.5-17.0) ng/L Total Protein 7.8 (6.5-8.0) g/dL Albumin 4.2 (3.5-5.0) g/dL TSH (0.32-4.0) uIU/mL Beta HCG, Quant mIU/mL Urine Color Urine Appearance Urine pH (5.0-9.0) Ur Specific [place] (1.005-1.025) Urine Protein (Neg-Trace) mg/dL Urine Glucose (UA) (Negative) mg/dL Urine Ketones (Negative) mg/dL Urine Blood (Negative) Urine Nitrite (Negative) Ur Leukocyte Esterase (Negative) COVID-19 ([place]) (Negative) COVID-19 Clin Com 08/14/22 08/14/22 08/14/22 Range/Units 13:41 13:41 14:53 WBC (4.8-10.8) X10*3/uL RBC (4.20-5.50) X10*6/uL Hgb (12.0-16.0) g/dl Hct (37.0-47.0) % MCV (80.0-98.0) fL MCH (27.0-33.0) pg MCHC (31.0-35.0) g/dl RDW (11.0-16.0) % Plt Count (160-400) X10*3/uL MPV (9.4-12.3) fL Immature Gran % (Auto) (0.0-0.4) % Neut % (Auto) (45-73) % Lymph % (Auto) (20-40) % [place] % (Auto) (2-11) % Eos % (Auto) (0-4) % Baso % (Auto) (0-2) % Lymph # (Auto) (1.2-4.9) X10*3/uL [place] # (Auto) (0.1-1.2) X10*3/uL Eos # (Auto) (0.0-0.4) X10*3/uL Baso # (Auto) (0.0-0.2) X10*3/uL Abs Immat Gran (auto) (0.00-0.03) X10*3/uL Absolute Neuts (auto) (2.0-8.3) x10*3/uL Absolute Nucleated RBC (0.0-0.012) X10*3/uL Nucleated RBC % (auto) (0.0-0.2) /100WBC D-Dimer High Sensitivty 285 NG/ML Sodium (135-145) mmol/L Potassium (3.3-5.1) mmol/L Chloride (96-108) mmol/L Carbon Dioxide (22-29) mmol/L Anion Gap (12-20) BUN (9-16) mg/dL Creatinine (0.5-1.4) mg/dL Estim Creat Clear Calc Estimated GFR Random Glucose (60-115) mg/dL Calcium (8.4-10.2) mg/dL Magnesium (1.6-2.6) mg/dL Total Bilirubin (0.0-1.0) mg/dL AST (5-31) U/L ALT (0-31) U/L Alkaline Phosphatase (39-117) U/L Troponin I High Sens (<3.5-17.0) ng/L Total Protein (6.5-8.0) g/dL Albumin (3.5-5.0) g/dL TSH (0.32-4.0) uIU/mL Beta HCG, Quant < 2 mIU/mL Urine Color Urine Appearance Urine pH (5.0-9.0) Ur Specific [place] (1.005-1.025) Urine Protein (Neg-Trace) mg/dL Urine Glucose (UA) (Negative) mg/dL Urine Ketones (Negative) mg/dL Urine Blood (Negative) Urine Nitrite (Negative) Ur Leukocyte Esterase (Negative) COVID-19 ([place]) Negative (Negative) COVID-19 Clin Com See Note 08/14/22 08/14/22 Range/Units 14:53 19:33 WBC (4.8-10.8) X10*3/uL RBC (4.20-5.50) X10*6/uL Hgb (12.0-16.0) g/dl Hct (37.0-47.0) % MCV (80.0-98.0) fL MCH (27.0-33.0) pg MCHC (31.0-35.0) g/dl RDW (11.0-16.0) % Plt Count (160-400) X10*3/uL MPV (9.4-12.3) fL Immature Gran % (Auto) (0.0-0.4) % Neut % (Auto) (45-73) % Lymph % (Auto) (20-40) % [place] % (Auto) (2-11) % Eos % (Auto) (0-4) % Baso % (Auto) (0-2) % Lymph # (Auto) (1.2-4.9) X10*3/uL [place] # (Auto) (0.1-1.2) X10*3/uL Eos # (Auto) (0.0-0.4) X10*3/uL Baso # (Auto) (0.0-0.2) X10*3/uL Abs Immat Gran (auto) (0.00-0.03) X10*3/uL Absolute Neuts (auto) (2.0-8.3) x10*3/uL Absolute Nucleated RBC (0.0-0.012) X10*3/uL Nucleated RBC % (auto) (0.0-0.2) /100WBC D-Dimer High Sensitivty NG/ML Sodium (135-145) mmol/L Potassium (3.3-5.1) mmol/L Chloride (96-108) mmol/L Carbon Dioxide (22-29) mmol/L Anion Gap (12-20) BUN (9-16) mg/dL Creatinine (0.5-1.4) mg/dL Estim Creat Clear Calc Estimated GFR Random Glucose (60-115) mg/dL Calcium (8.4-10.2) mg/dL Magnesium (1.6-2.6) mg/dL Total Bilirubin (0.0-1.0) mg/dL AST (5-31) U/L ALT (0-31) U/L Alkaline Phosphatase (39-117) U/L Troponin I High Sens (<3.5-17.0) ng/L Total Protein (6.5-8.0) g/dL Albumin (3.5-5.0) g/dL TSH < 0.01 L (0.32-4.0) uIU/mL Beta HCG, Quant mIU/mL Urine Color Yellow Urine Appearance Clear Urine pH 5.5 (5.0-9.0) Ur Specific [place] 1.015 (1.005-1.025) Urine Protein Negative (Neg-Trace) mg/dL Urine Glucose (UA) Negative (Negative) mg/dL Urine Ketones Negative (Negative) mg/dL Urine Blood Negative (Negative) Urine Nitrite Positive H (Negative) Ur Leukocyte Esterase Trace H (Negative) COVID-19 ([place]) (Negative) COVID-19 Clin Com Independent Interpretation I performed an independent interpretation of an: EKG Interpretation: Rate 94 normal sinus rhythm normal intervals no signs ischemia no change from previous External Record Review External record reviewed: Inpatient record Chronic Conditions Hypothyroidism Discharge Plan Discharge Clinical Impression: Vertigo Patient Disposition: Home, Self-Care Instructions: Vertigo (ED), Benign Paroxysmal Positional Vertigo (ED) Additional Instructions: You were seen today for dizziness. You had labs and CT which were all normal. Please call to follow up with Neurology and take meclizine as needed for dizziness. Prescriptions: New meclizine 12.5 mg tablet 12.5 mg PO TID PRN (Reason: vertigo) Qty: 60 0RF No Action methimazole 10 mg tablet 15 mg PO DAILY Qty: 30 3RF naproxen [Naprosyn] 500 mg tablet 500 mg PO BID Qty: 20 0RF Mirena 20 mcg/24 hours (7 yrs) 52 mg intrauterine device intrauterine Referrals: Pancho Massey MD [Physician] - (Please call to follow up for vertigo.)
[2022-08-14 14:13] LABS: Alanine Aminotransferase 32 U/L (0-31); Albumin Level 4.2 g/dL (3.5-5.0); Alkaline Phosphatase 113 U/L (39-117); Anion Gap 15 (12-20); Aspartate Amino Transferase 20 U/L (5-31); Bilirubin Total 0.6 mg/dL (0.0-1.0); Blood Urea Nitrogen 13 mg/dL (9-16); Carbon Dioxide 20 mmol/L (22-29); Chloride 106 mmol/L (96-108); Creatinine Clr Calc Pharmacy 78.7; Estimated Glomerular Filt Rate > 60; Glucose Random 103 mg/dL (60-115); Potassium 4.3 mmol/L (3.3-5.1); Sodium 137 mmol/L (135-145); Total Protein 7.8 g/dL (6.5-8.0)
[2022-08-14 19:37] VITALS: BP 180/92; PULSE 78
[2022-08-14 19:38] VITALS: BP 177/96; PULSE 76
[2022-08-14 19:39] VITALS: BP 188/94; PULSE 77
[2022-08-14 19:42] LABS: Appearance Urine Clear; Color Urine Yellow; Glucose Urine UA Negative (Negative); Leukocyte Esterase Urine Trace (Negative); Nitrite Urine Positive (Negative); PH 5.5 (5.0-9.0); Specific Gravity - Urine 1.015 (1.005-1.025); UMIC TRIGGER UACC YES; Urine Blood Negative (Negative); Urine Ketones Negative (Negative); Urine Protein Negative (Neg-Trace)
[2022-08-14 21:42] VITALS: BP 144/82; PULSE 75; RESP 16
[2022-08-14] MEDS: Meclizine HCl 25 MG TABLET PO (21:43)
--- NOTE | 2022-08-14 21:44 | PC.NURSE ---
pt a&ox4, vss, pt denies any h/a or pain at this time, endorsing dizziness, medicated per MAR. no new orders at this time.
[2022-08-14 23:26] LABS: Bacteria Urine 4+ (None Seen); Hyaline Casts Urine 0-2 /LPF (0-2); UACC Culture Trigger YES
== END 2022-08-14 21:59 | disposition home or self-care (01) ==
PROVIDERS: Physician Assistant; Emergency Provider Student in an Organized Health Care Education/Training Program; PCP Pediatrics
DX: R55 Syncope and collapse (principal); R51.9 Headache, unspecified; R42 Dizziness and giddiness; Z20.822 Contact with and (suspected) exposure to COVID-19; Z20.828 Contact with and (suspected) exposure to other viral communicable diseases; Z79.899 Other long term (current) drug therapy
CPT/HCPCS: 36415; 70450; 80053; 81001; 83735; 84443; 84484; 84702; 85025; 85379; 87086; 87088; 87186; 87635; 93005; 99284

== ENCOUNTER → 2022-08-14 13:26 | Outpatient (BNV) | payer OTHER, SELFPAY | PROVIDERS: PCP Pediatrics; Visit Provider Internal Medicine Cardiovascular Disease | DX: R55 Syncope and collapse (principal) | CPT/HCPCS: 93010 ==

== ENCOUNTER 2022-10-11 08:14 | Outpatient (REF) | payer OTHER, SELFPAY ==
[2022-10-11 11:34] LABS: MANUAL DIFF FLAG NO
[2022-10-11 11:41] LABS: Basophils Absolute Auto 0.1 X10*3/uL (0.0-0.2); Basophils Percent Auto 0.9 % (0-2); Eosinophils Absolute Auto 0.5 X10*3/uL (0.0-0.4); Eosinophils Percent Auto 8.4 % (0-4); Hematocrit 39.6 % (37.0-47.0); Imm Gran Abs Auto 0.05 X10*3/uL (0.00-0.03); Imm Gran Pct Auto 0.9 % (0.0-0.4); Lymphocytes Absolute Auto 1.6 X10*3/uL (1.2-4.9); Lymphocytes Percent Auto 28.2 % (20-40); Mean Corpuscular HGB Conc 32.8 g/dl (31.0-35.0); Mean Corpuscular Hemoglobin 28.8 pg (27.0-33.0); Mean Corpuscular Volume 87.6 fL (80.0-98.0); Mean Platelet Volume 9.5 fL (9.4-12.3); Monocytes Absolute Auto 0.4 X10*3/uL (0.1-1.2); Monocytes Percent Auto 7.5 % (2-11); Neutrophils Absolute Auto 3.1 x10*3/uL (2.0-8.3); Neutrophils Percent Auto 54.1 % (45-73); Platelet Count 490 X10*3/uL (160-400); Red Blood Count 4.52 X10*6/uL (4.20-5.50); Red Cell Distribution Width 13.2 % (11.0-16.0); White Blood Count 5.7 X10*3/uL (4.8-10.8)
[2022-10-11 12:10] LABS: Estimated Average Glucose 94 mg/dL; Hemoglobin A1c % 4.9 % (<6.0)
[2022-10-11 12:37] LABS: Creatinine Urine 147.12 mg/dL; Microalbum/Creatinine Ratio Ur 27.8 ug/mg cr (<30)
[2022-10-11 12:46] LABS: Alanine Aminotransferase 27 U/L (0-31); Alkaline Phosphatase 144 U/L (39-117); Anion Gap 11 (12-20); Aspartate Amino Transferase 17 U/L (5-31); Bilirubin Total 0.4 mg/dL (0.0-1.0); Blood Urea Nitrogen 10 mg/dL (9-16); Carbon Dioxide 26 mmol/L (22-29); Chloride 108 mmol/L (96-108); Cholesterol 172 mg/dL (<200); Estimated Glomerular Filt Rate > 60; Glucose Random 87 mg/dL (60-115); HDL Cholesterol 43 mg/dL (>40); LDL Cholesterol Calculated 111 mg/dL (<100); Potassium 4.4 mmol/L (3.3-5.1); Sodium 141 mmol/L (135-145); Total Protein 7.4 g/dL (6.5-8.0); Triglycerides 90 mg/dL (<150)
[2022-10-11 12:52] LABS: Free T4 (Free Thyroxine) 1.08 ng/dL (0.71-1.85); Thyroid Stimulating Hormone < 0.01 uIU/mL (0.32-4.0); Vitamin D 25-OH Total 21.7 ng/mL (>30)
[2022-10-11 13:07] LABS: CT PCR NOT DETECTED (Not Detect.); NG PCR NOT DETECTED (Not Detect.)
[2022-10-12 08:49] LABS: HBc Num1 0.15 S/CO (0.00-0.79); HBsAGNum1 0.35 S/CO (0.00-0.99); HIV AB/AG Nonreactive (Nonreactive); HIV Num 1 0.05 S/CO (0.00-0.99); Hepatitis B Core Antibody Nonreactive (Nonreactive); Hepatitis B Surface Antigen Negative (Negative); ~Hepatitis B Surface Antibody NONREACTIVE (Nonreactive)
[2022-10-12 08:50] LABS: ~HepC Num1 0.08 S/CO (0.00-0.79); ~Hepatitis C Antibody Nonreactive (Nonreactive)
[2022-10-13 02:58] LABS: Immunoglobulin E 131 kU/L (<OR=114)
[2022-10-13 04:35] LABS: Syphilis Screen Nonreactive (Nonreactive)
[2022-10-13 16:04] LABS: Gamma Glutamyl Transpeptidase 44 U/L (7-33)
[2022-10-19 23:13] LABS: Strongyloides Antibody IgG POSITIVE
== END 2022-10-11 08:15 | disposition home or self-care (01) ==
LOC: HO.HHCL 08:14
PROVIDERS: Registered Nurse; Visit Provider Student in an Organized Health Care Education/Training Program
DX: Z00.00 Encounter for general adult medical examination without abnormal findings (principal); R76.8 Other specified abnormal immunological findings in serum
CPT/HCPCS: 0353U; 36415; 80053; 80061; 82043; 82306; 82570; 82785; 82977; 83036; 84439; 84443; 85025; 86682; 86704; 86706; 86780; 86803; 87340; 87389

== ENCOUNTER 2022-10-11 10:56 | Outpatient (REF) | payer OTHER, SELFPAY ==
--- NOTE | ~2022-10-11 | US_ITS ---
EXAMINATION: MM DIAGNOSTIC DIGITAL BREAST TOMOSYNTHESIS, BILATERAL US BREAST LIMITED, LEFT MAMMOGRAPHY: CLINICAL INFORMATION: 1 year follow-up left breast nodule 4:00 axis I cm from the nipple. Patient also due for routine bilateral screening. COMPARISON: Mammography: 07/27/2021, 07/08/2020, 11/21/2012 breast biopsy. Ultrasound left breast 01/11/2021, and 07/12/2020. TECHNIQUE: Digital breast tomosynthesis is performed in both the craniocaudal and mediolateral oblique views along with computer-aided detection (CAD). Synthesized 2D images are generated from the tomosynthesis. FINDINGS: The breasts are heterogeneously dense, which may obscure small masses (ACR BI-RADS breast composition Category c). There are known bilateral masses present, known to represent fibroadenomas. The overall pattern is similar to prior exams. Left retroareolar mass in the 4:00 position appears stable in size and appearance. Biopsy clips present in the anterior right breast and posterior 3:00 right breast from prior benign biopsies. No suspicious masses, areas of architectural distortion, or suspicious developing grouped calcifications. ULTRASOUND: CLINICAL INFORMATION: 1 year follow-up left periareolar mass 4:00 axis. COMPARISON: 07/27/2021, dating back to 07/12/2020. TECHNIQUE: Targeted sonographic evaluation retroareolar left breast was performed using a high frequency linear transducer. Selected archived documentation. FINDINGS: LEFT BREAST: In the 4:00 axis of the left breast, 1 cm from the nipple, there is a stable lobulated hypoechoic mass measuring 0.9 x 0.6 x 1.2 cm, unchanged, with good through transmission, and no internal color Doppler flow, highly suggestive of fibroadenoma. This has been stable over a two-year time period and can be considered benign. US/US breast LT limited mamm only IMPRESSION: No findings suspicious for malignancy in either breast. Stable bilateral benign lobular masses, consistent with fibroadenomas. Recommend the patient resume routine annual screening mammography. OVERALL ASSESSMENT: Mammography: BI-RADS 2 - Benign Findings Ultrasound: BI-RADS 2 - Benign Findings RECOMMENDATION: 1 year F/U Results were provided to the patient at time of visit by the technologist. This patient's information was entered into a reminder system with a target due date for their next mammogram.
== END 2022-10-11 10:57 | disposition home or self-care (01) ==
LOC: HO.MAMMO 10:56
PROVIDERS: PCP Pediatrics; Visit Provider Pediatrics
DX: N63.23 Unspecified lump in the left breast, lower outer quadrant (principal)
CPT/HCPCS: 76642; 77062; 77066

== ENCOUNTER → 2022-10-11 11:00 | Outpatient (BNV) | payer OTHER, SELFPAY | PROVIDERS: PCP Pediatrics; Visit Provider Radiology Diagnostic Radiology | DX: N60.21 Fibroadenosis of right breast (principal); N60.22 Fibroadenosis of left breast | CPT/HCPCS: 76642; 77062; 77066 ==

== ENCOUNTER 2022-10-18 08:44 | Outpatient (AMB) | payer OTHER, SELFPAY ==
[2022-10-18 08:45] VITALS: BP 118/70; PULSE 77; BMI 23.8
--- NOTE | 2022-10-18 08:45 | A.OFFVIS_ITS ---
Intake Vital Signs 10/18/22 08:45 Height 5 ft 3 in Weight 134 lb 4.184 oz BMI 23.8 BP 118/70 Blood Pressure Location Lt brachial Position Sitting Pulse 77 Pulse Source Pulse Oximeter Intake Visit Reasons: f/u hyperthyroidism/LVM Intake Note: Patient present for Hyperthyroidism follow up visit. 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 Currently c/o dysphagia but no hoarseness of voice. Denies sensation of swelling in the neck or difficulty breathing while lying flat. [Denies] any tenderness in the neck. Denies any palpitations, tremors, weight loss, frequent bowel movements. has ocular complaints, no blurred or double vision. 2 mos ago Denies hair loss, + dry skin, -heat or cold intolerance, + weight gain, confusion. Denies any history of head or neck irradiation. Denies any family history of thyroid cancer. Family history of thyroid problems Thyroid US: Use of biotin: No No use of Kelp or seaweed Labs: Are consistent with hyperthyroidism due to Graves disease with positive antibody She currently on 15 mg of MMI Has f/u appt on 07/[address] Mac for GUSTAVO. 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 Thyroid gland is enlarged and measures 50 gms . No nodules or tenderness palpated. No Bruit is present over the thyroid. There is no cervical adenopathy palpated. Lungs CTA. Heart S1, S2 Reg R/R -M/R/G. Abdominal exam benign. Skin exam reveals absence of dryness or thyroid dermopathy or vitiligo. Nail exam reveals absence of thyroid acropachy or oncholysis. Neurologic exam reveals 2+ reflexes . Muscle Strength is 5/5 proximally. There are no tremors in upper extremities. Assessment & Plan Assessment & Plan (1) Hyperthyroidism: Code(s): E05.90 - Thyrotoxicosis, unspecified without thyrotoxic crisis or storm Plan: This is a 41-year-old female with a history of hyperthyroidism due to Graves disease . She appears to be clinically euthyroid on 15 mg of methimazole. Free T4 was normal with suppressed TSH. Free T3 was not measured Plan is to check a repeat TSH, free T4 and free T3 level in 3 wks as pt has not taken methimazole in several days. Depending upon above, may adjust methimazole. Went over the different options of treatment including the continuation of methimazole versus surgery versus radioactive iodine the patient is opting to stay on methimazole. We went over the side effects of methimazole occluding not limited to liver toxicity and agranulocytosis. She is opting to stay on the antithyroid medication at present Medications: Refilled methimazole 15 mg (1.5 x 10 mg) PO DAILY 30 tabs 3RF Coding Level of Care Code Est Pt Level 3 (54807) Diagnoses Hyperthyroidism E05.90
== END 2022-10-18 09:10 | disposition home or self-care (01) ==
PROVIDERS: PCP Pediatrics; Visit Provider Internal Medicine Endocrinology, Diabetes & Metabolism
DX: E05.90 Thyrotoxicosis, unspecified without thyrotoxic crisis or storm (principal)
CPT/HCPCS: 99213

== ENCOUNTER → 2022-10-18 08:44 | Outpatient (BNVA) | payer OTHER, SELFPAY | PROVIDERS: Visit Provider Internal Medicine Endocrinology, Diabetes & Metabolism | DX: E05.01 Thyrotoxicosis with diffuse goiter with thyrotoxic crisis or storm (principal); R13.10 Dysphagia, unspecified | CPT/HCPCS: 99212 ==

== ENCOUNTER 2022-11-01 09:36 | Outpatient (AMB) | payer OTHER, SELFPAY ==
--- NOTE | 2022-11-01 09:42 | MHC.OFFVIS ---
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 Date of insertion was on 04/06/2016. Since then the patient has been happy with the Mirena IUD, minimal to no menstrual cycles or cramps . 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 Sexual orientation: Straight/Heterosexual Gender identity: Female Female Reproductive History Menstrual control method: progestin IUCD Review of Systems Const All systems reviewed & are unremarkable except as noted in HPI and below Reports as per HPI and Reports no additional complaints GI Reports no additional complaints Reports no additional complaints Physical Exam Vital Signs: BMI result Body Mass Index 23.4 Assessment & Plan Assessment & Plan (1) Contraceptive management: Code(s): Z30.9 - Encounter for contraceptive management, unspecified Plan: Discussed with the patient that Mirena IUD is FDA approved for contraception for 8 years, it will by 04/06/2024, recommended to the patient to plan IUD removal and replacement prior to that date. All questions answered, the patient verbalized understanding and agreed with the plan. Coding Level of Care Code Est Pt Level 2 (09014) Diagnoses Contraceptive management Z30.9
[2022-11-01 09:43] VITALS: BP 102/66; BMI 23.4
== END 2022-11-01 13:24 | disposition home or self-care (01) ==
PROVIDERS: PCP Pediatrics; Visit Provider Obstetrics & Gynecology
DX: Z30.9 Encounter for contraceptive management, unspecified (principal)
CPT/HCPCS: 99212

== ENCOUNTER → 2022-11-01 09:36 | Outpatient (BNVA) | payer OTHER, SELFPAY | PROVIDERS: PCP Pediatrics; Visit Provider Obstetrics & Gynecology | DX: Z30.9 Encounter for contraceptive management, unspecified (principal) | CPT/HCPCS: 99212 ==

== ENCOUNTER 2023-01-12 07:41 | Outpatient (REF) | payer OTHER, SELFPAY ==
--- NOTE | ~2023-01-12 | US_ITS ---
EXAMINATION: US ABDOMEN COMPLETE CLINICAL INFORMATION: Elevated alkaline phosphatase and GGT. Rule out biliary disease. COMPARISON: None available. TECHNIQUE: Real-time imaging of the abdominal viscera. Limited visualization due to bowel gas. FINDINGS: PANCREAS: Limited visualization of pancreatic tail and head. Imaged portion of pancreatic body is unremarkable. ABDOMINAL AORTA: Nonaneurysmal. INFERIOR VENA CAVA: Visualized portions are normal. LIVER: Unremarkable in echogenicity. Limited visualization. Prominent vessels adjacent to the pipe hepatis. GALLBLADDER: No gallstones. No gallbladder wall thickening. COMMON BILE DUCT: Normal in caliber measuring 0.34 cm in diameter. RIGHT KIDNEY: No hydronephrosis. No renal calculi. Limited visualization. Renal cortical thickness is normal. The kidney measures 9.9 cm in maximum dimension. LEFT KIDNEY: No hydronephrosis. No renal calculi. Renal cortical thickness is normal. Limited visualization. The kidney measures 10.0 cm in maximum dimension. SPLEEN: Prominent vessels adjacent to the splenic hilum. The spleen measures 10.5 cm in maximum dimension. FREE FLUID: None. US/US abdomen complete IMPRESSION: Prominent vessels identified in the pipe hepatis and adjacent to the spleen, poorly characterized. CT scan with intravenous contrast recommended for further evaluation.
[2023-01-12 08:26] LABS: MANUAL DIFF FLAG NO
[2023-01-12 09:05] LABS: Basophils Percent Auto 0.7 % (0-2); Eosinophils Absolute Auto 0.1 X10*3/uL (0.0-0.4); Eosinophils Percent Auto 2.5 % (0-4); Hematocrit 43.1 % (37.0-47.0); Hemoglobin 14.3 g/dl (12.0-16.0); Imm Gran Abs Auto 0.02 X10*3/uL (0.00-0.03); Imm Gran Pct Auto 0.4 % (0.0-0.4); Lymphocytes Absolute Auto 1.5 X10*3/uL (1.2-4.9); Lymphocytes Percent Auto 27.9 % (20-40); Mean Corpuscular HGB Conc 33.2 g/dl (31.0-35.0); Mean Corpuscular Hemoglobin 28.9 pg (27.0-33.0); Mean Corpuscular Volume 87.1 fL (80.0-98.0); Mean Platelet Volume 9.5 fL (9.4-12.3); Monocytes Absolute Auto 0.3 X10*3/uL (0.1-1.2); Monocytes Percent Auto 6.2 % (2-11); Neutrophils Absolute Auto 3.4 x10*3/uL (2.0-8.3); Neutrophils Percent Auto 62.3 % (45-73); Platelet Count 406 X10*3/uL (160-400); Red Blood Count 4.95 X10*6/uL (4.20-5.50); Red Cell Distribution Width 14.5 % (11.0-16.0); White Blood Count 5.5 X10*3/uL (4.8-10.8)
[2023-01-12 09:29] LABS: Free T4 (Free Thyroxine) 0.74 ng/dL (0.71-1.85); Thyroid Stimulating Hormone 0.35 uIU/mL (0.32-4.0)
== END 2023-01-12 07:42 | disposition home or self-care (01) ==
LOC: HO.US 07:41
PROVIDERS: PCP Pediatrics; Referring Provider Internal Medicine Endocrinology, Diabetes & Metabolism; Visit Provider Student in an Organized Health Care Education/Training Program
DX: E05.90 Thyrotoxicosis, unspecified without thyrotoxic crisis or storm (principal); R74.8 Abnormal levels of other serum enzymes
CPT/HCPCS: 36415; 76700; 84439; 84443; 84481; 85025

== ENCOUNTER 2023-02-06 11:42 | Outpatient (AMB) | payer OTHER, SELFPAY ==
--- NOTE | 2023-02-06 11:43 | MHC.OFFVIS ---
Intake Vital Signs 02/06/23 11:44 Height 5 ft 3 in Weight 140 lb 3.424 oz BMI 24.8 BP 114/60 Blood Pressure Location Lt brachial Position Sitting Pulse 63 Pulse Source Pulse Oximeter Intake Visit Reasons: Grave's Disease-lvm Intake Note: Patient present today for Grave's disease follow up visit. Taxicab Coordinator Required: No Accompanied by: Self / Same As Patient Allergies No Known Allergies Allergy (Verified 02/06/23 11:51) HPI HPI Comments History of Present Illness Details 42 YO F with who is seen in consultation for hyperthyroidism due to autoimmune thyroid disease at the request of PCP. Currently c/o dysphagia but no hoarseness of voice. Denies sensation of swelling in the neck or difficulty breathing while lying flat. [Denies] any tenderness in the neck. Denies any palpitations, tremors, weight loss, frequent bowel movements. has ocular complaints, no blurred or double vision. 2 mos ago Denies hair loss, + dry skin, -heat or cold intolerance, + weight gain, confusion. Denies any history of head or neck irradiation. Denies any family history of thyroid cancer. Family history of thyroid problems Thyroid US: Use of biotin: No No use of Kelp or seaweed Labs: Are consistent with hyperthyroidism due to Graves disease with positive antibody She currently on 15 mg of MMI Has f/u appt on 07/[address] Mac for GUSTAVO. 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 Thyroid gland is enlarged and measures 50 gms . No nodules or tenderness palpated. No Bruit is present over the thyroid. There is no cervical adenopathy palpated. Lungs CTA. Heart S1, S2 Reg R/R -M/R/G. Abdominal exam benign. Skin exam reveals absence of dryness or thyroid dermopathy or vitiligo. Nail exam reveals absence of thyroid acropachy or oncholysis. Neurologic exam reveals 2+ reflexes . Muscle Strength is 5/5 proximally. There are no tremors in upper extremities. Assessment & Plan Assessment & Plan (1) Hyperthyroidism: Code(s): E0 - Thyrotoxicosis, unspecified without thyrotoxic crisis or storm Plan: This is a 41-year-old female with a history of hyperthyroidism due to Graves disease . She appears to be clinically and biochemically euthyroid on 15 mg of methimazole. Plan is to continue the current therapy. Went over the different options of treatment including the continuation of methimazole versus surgery versus radioactive iodine the patient is opting to stay on methimazole. We went over the side effects of methimazole occluding not limited to liver toxicity and agranulocytosis. She is opting to stay on the antithyroid medication at present Orders: Orders Free T4 (Free Thyroxine) 4 Months E0 - Thyrotoxicosis, unspecified without thyrotoxic crisis or storm Triiodothyronine T3 Free 4 Months E0 - Thyrotoxicosis, unspecified without thyrotoxic crisis or storm Thyroid Stimulating Hormone 4 Months E0. - Thyrotoxicosis, unspecified without thyrotoxic crisis or storm Complete Blood Count Auto Diff 4 Months E0 - Thyrotoxicosis, unspecified without thyrotoxic crisis or storm Liver Panel 4 Months E0. - Thyrotoxicosis, unspecified without thyrotoxic crisis or storm Coding Level of Care Code Est Pt Level 3 (19823) Diagnoses Hyperthyroidism E0
[2023-02-06 11:44] VITALS: BP 114/60; PULSE 63; BMI 24.8
== END 2023-02-06 12:00 | disposition home or self-care (01) ==
PROVIDERS: PCP Pediatrics; Visit Provider Internal Medicine Endocrinology, Diabetes & Metabolism
DX: E05.90 Thyrotoxicosis, unspecified without thyrotoxic crisis or storm (principal)
CPT/HCPCS: 99213

== ENCOUNTER → 2023-02-06 11:42 | Outpatient (BNVA) | payer OTHER, SELFPAY | PROVIDERS: PCP Pediatrics; Visit Provider Internal Medicine Endocrinology, Diabetes & Metabolism | DX: E05.00 Thyrotoxicosis with diffuse goiter without thyrotoxic crisis or storm (principal); Z79.899 Other long term (current) drug therapy | CPT/HCPCS: 99212 ==

== ENCOUNTER 2023-03-21 08:30 | Outpatient (REF) | payer OTHER, SELFPAY ==
--- NOTE | ~2023-03-21 | CT_ITS ---
EXAMINATION: CT ABDOMEN WITH CONTRAST CLINICAL INFORMATION: Prominent vessel adjacent to spleen COMPARISON: Ultrasound abdomen from 01/12/2023 TECHNIQUE: Contiguous axial thin section helical images of the abdomen were performed following the administration of oral contrast and 100 mL of Omnipaque 350 intravenous contrast. The data set was reformatted in the coronal and sagittal planes and reviewed on an independent workstation. This CT examination was performed using dose optimization techniques as appropriate, variously including the following: *Automated exposure control *Adjustment of mA and/or kV according to patient size (this includes techniques or standardized protocols for targeted exams where dose is matched to indication/reason for exam; i.e. extremities or head) *Use of iterative reconstruction technique DLP: 143 mGy-cm FINDINGS: LUNGS BASES: Partially visualized pleural-based nodular focus along the lateral aspect of the right lower lobe measuring 2 mm (series 4, image 1). Nodular thickening along the lateral margin of the left major fissure measuring 4 mm (series 4, image 1), partially visualized. No pneumothorax. No large pleural effusion. LIVER, GALLBLADDER, AND BILIARY TREE: The liver is normal in size, shape, and attenuation. No focal hepatic lesion or biliary ductal dilatation is present. The gallbladder is unremarkable with no evidence of radiopaque gallstones, gallbladder wall thickening, or obvious pericholecystic inflammatory changes. PANCREAS: Unremarkable. SPLEEN: Unremarkable. ADRENAL GLANDS: Unremarkable. KIDNEYS AND URETERS: The kidneys are normal in size, shape, and attenuation. No hydronephrosis, hydroureter, or calculi seen. No perinephric stranding. GASTROINTESTINAL TRACT: Small hiatal hernia. The small and large bowel are unremarkable. ABDOMINAL WALL: No significant hernia is appreciated. LYMPH NODES: A few subcentimeter mesenteric periaortic and aortocaval lymph nodes are noted, not enlarged per size criteria. VASCULAR: Abdominal aorta is nonaneurysmal. Splenic vein is diameter is upper limits of normal measuring 10 mm. Dilatation of the splenic vein can be associated with Nutcracker physiology though no definitive compression of the left renal vein interposed between the superior mesenteric artery and aorta is definitively visualized. Correlation with symptomatology. OSSEOUS STRUCTURES: Unremarkable. CT/CT abdomen w IV con IMPRESSION: 1. No acute process of the abdomen identified. 2. Splenic vein is diameter is upper limits of normal measuring 10 mm. Dilatation of the splenic vein can be associated with Nutcracker physiology though no definitive compression of the left renal vein interposed between the superior mesenteric artery and aorta is definitively visualized. Correlation with symptomatology. 3. Partially visualized pleural-based nodular focus along the lateral aspect of the right lower lobe measuring 2 mm. Nodular thickening along the lateral margin of the left major fissure measuring 4 mm , partially visualized. Follow-up as per Fleischner criteria. 4. Small hiatal hernia. Various management parameters for solitary pulmonary nodules are in the literature. According to the Fleischner Society, recommendations for pulmonary nodules are as follows: According to the UPDATED 2017 Fleischner Society recommendations, the advised follow-up imaging for solid nodules < 6 mm is: LOW RISK PATIENT: No routine follow-up.
[2023-03-21] MEDS: iohexoL 350 MG/ML 100 ML INFUS..BTL IV (09:00)
== END 2023-03-21 08:31 | disposition home or self-care (01) ==
LOC: HO.CT 08:30
PROVIDERS: PCP Pediatrics; Visit Provider Student in an Organized Health Care Education/Training Program
DX: R74.8 Abnormal levels of other serum enzymes (principal); R93.5 Abnormal findings on diagnostic imaging of other abdominal regions, including retroperitoneum
CPT/HCPCS: 74160; Q9967

== ENCOUNTER 2023-06-27 08:15 | Outpatient (REF) | payer OTHER, SELFPAY ==
[2023-06-27 08:38] LABS: MANUAL DIFF FLAG NO
[2023-06-27 08:52] LABS: Basophils Percent Auto 0.7 % (0-2); Eosinophils Absolute Auto 0.1 X10*3/uL (0.0-0.4); Eosinophils Percent Auto 0.9 % (0-4); Hematocrit 41.8 % (37.0-47.0); Hemoglobin 14.3 g/dl (12.0-16.0); Imm Gran Abs Auto 0.01 X10*3/uL (0.00-0.03); Imm Gran Pct Auto 0.2 % (0.0-0.4); Lymphocytes Absolute Auto 1.8 X10*3/uL (1.2-4.9); Lymphocytes Percent Auto 31.2 % (20-40); Mean Corpuscular HGB Conc 34.2 g/dl (31.0-35.0); Mean Corpuscular Volume 87.8 fL (80.0-98.0); Mean Platelet Volume 9.3 fL (9.4-12.3); Monocytes Absolute Auto 0.5 X10*3/uL (0.1-1.2); Neutrophils Absolute Auto 3.5 x10*3/uL (2.0-8.3); Platelet Count 362 X10*3/uL (160-400); Red Blood Count 4.76 X10*6/uL (4.20-5.50); Red Cell Distribution Width 13.2 % (11.0-16.0); White Blood Count 5.9 X10*3/uL (4.8-10.8)
[2023-06-27 09:29] LABS: Alanine Aminotransferase 15 U/L (0-31); Albumin Level 4.5 g/dL (3.5-5.0); Alkaline Phosphatase 71 U/L (39-117); Aspartate Amino Transferase 13 U/L (5-31); Bilirubin Direct 0.3 mg/dL (0.0-0.5); Bilirubin Total 0.9 mg/dL (0.0-1.0); Total Protein 7.8 g/dL (6.5-8.0)
[2023-06-27 09:45] LABS: Free T4 (Free Thyroxine) 0.89 ng/dL (0.71-1.85); Thyroid Stimulating Hormone 0.68 uIU/mL (0.32-4.0)
[2023-06-27 11:01] LABS: Appearance Urine Cloudy; Color Urine Yellow; Glucose Urine UA Negative (Negative); Leukocyte Esterase Urine Negative (Negative); Nitrite Urine Negative (Negative); PH 5.5 (5.0-9.0); Specific Gravity - Urine 1.025 (1.005-1.025); Urine Blood Negative (Negative); Urine Ketones Negative (Negative); Urine Protein Trace mg/dL (Neg-Trace)
[2023-06-27 11:06] LABS: Bacteria Urine 4+ (None Seen); Hyaline Casts Urine 0-2 /LPF (0-2); RBC Urine 0-2 /HPF (0-2); WBC Urine 0-5 /HPF (0-5)
[2023-06-28 07:49] LABS: Triiodothyronine T3 Free 2.8 pg/mL (2.3-4.2)
== END 2023-06-27 08:16 | disposition home or self-care (01) ==
LOC: HO.LAB 08:15
PROVIDERS: PCP Student in an Organized Health Care Education/Training Program; Visit Provider Internal Medicine Endocrinology, Diabetes & Metabolism
DX: Z01.419 Encounter for gynecological examination (general) (routine) without abnormal findings (principal); E05.90 Thyrotoxicosis, unspecified without thyrotoxic crisis or storm; R31.9 Hematuria, unspecified
CPT/HCPCS: 36415; 80076; 81001; 84439; 84443; 84481; 85025; 99396

== ENCOUNTER 2023-06-27 08:41 | Outpatient (AMB) | payer OTHER, SELFPAY ==
--- NOTE | 2023-06-27 08:52 | A.OFFVIS_ITS ---
Vital Signs 06/27/23 09:07 Height 5 ft 3 in Weight 136 lb BMI 24.1 BP 120/74 Intake Visit Reasons: annual Allergies No Known Allergies Allergy (Verified 02/06/23 11:51) HPI Comments Details: Presenting for annual exam. No complaints. 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 Sexual orientation: Straight/Heterosexual Gender identity: Female Female Reproductive History Menstrual Date of last pap smear: 03/01/22 Date of Mammogram: 10/11/22 Review of Systems Const All systems reviewed & are unremarkable except as noted in HPI and below Card Reports as per HPI Resp Reports as per HPI GI Reports as per HPI and Reports no additional complaints Reports as per HPI Physical Exam Vital Signs: Last Vital Signs BP 120/74 06/27/23 09:07 BMI result Body Mass Index 24.1 Const General: cooperative, healthy appearing and comfortable Chest Chest palpation & inspection: normal inspection of the chest and normal palpation of entire chest wall Breast/axilla inspection: normal inspection of the breasts and normal inspection of the axillae Breast/axilla palpation: normal palpation of the breasts, normal palpation of the axillae and no axillary lymphadenopathy Resp Effort & Inspection: normal respiratory effort Auscultation: clear to auscultation bilaterally Percussion: percussion normal Cardio Palpation: normal PMI Rate: regular rate Rhythm: regular rhythm Heart sounds: no murmurs and no rubs Peripheral pulses: Peripheral pulses 2+ throughout GI Inspection: Yes normal to inspection Palpation (GI): Soft to palpation, nontender, no guarding, not rigid and No hepatosplenomegaly present Percussion: Yes normal to percussion Auscultation: normal bowel sounds Rectal Exam - Female: deferred General: Yes bladder normal to palpation External Female Exam: No lesion Speculum Exam - Vagina: normal appearance of the vagina, normal palpation, normal vaginal discharge and not erythematous Speculum Exam - Cervix: normal appearance of the cervix and normal palpation Bimanual exam- vagina & uterus: normal bimanual exam, normal palpation, uterine size normal, bladder normal to palpation, consistency normal and normal palpation Bimanual Exam- Adnexa, other: normal adnexae, no masses and no tenderness Assessment & Plan Assessment & Plan (1) Well woman exam with routine gynecological exam: Code(s): Z01.419 - Encounter for gynecological examination (general) (routine) without abnormal findings Category: Medical Plan: Co testing not indicated this year. Counseled the patient about the recommended dietary allowance of 1200 mg of Calcium & 600 IU of vitamin D. Instructions given to patient to schedule next screening Mammogram in 10/29. The patient was instructed to perform monthly self-breast exams and schedule annual exam in a year. All questions answered and the patient verbalized understanding. Coding Level of Care Code Est Pt Prev Care 40-64y(39858) Diagnoses Well woman exam with routine gynecological exam Z01.419
[2023-06-27 09:07] VITALS: BP 120/74; BMI 24.1
== END 2023-06-27 09:26 | disposition home or self-care (01) ==
PROVIDERS: PCP Pediatrics; Visit Provider Obstetrics & Gynecology
DX: Z01.419 Encounter for gynecological examination (general) (routine) without abnormal findings (principal)
CPT/HCPCS: 99396

== ENCOUNTER 2023-07-11 10:55 | Outpatient (AMB) | payer OTHER, SELFPAY ==
[2023-07-11 11:04] VITALS: BP 120/66; PULSE 80; BMI 24.6
--- NOTE | 2023-07-11 11:04 | A.OFFVIS_ITS ---
Vital Signs 07/11/23 11:04 Height 5 ft 3 in Weight 139 lb 1.787 oz BMI 24.6 BP 120/66 Blood Pressure Location Lt brachial Position Sitting Pulse 80 Pulse Source Pulse Oximeter Intake Visit Reasons: f/u hyperthyroidism-confirmed Intake Note: Patient present today for Hyperthyroidism follow up visit. Application Developer Manager Required: No Accompanied by: Self / Same As Patient Allergies No Known Allergies Allergy (Verified 07/11/23 11:07) HPI Comments Details: 42 YO F with who is seen in consultation for hyperthyroidism due to autoimmune thyroid disease at the request of PCP. Currently c/o dysphagia but no hoarseness of voice. Denies sensation of swelling in the neck or difficulty breathing while lying flat. [Denies] any tenderness in the neck. Denies any palpitations, tremors, weight loss, frequent bowel movements. has ocular complaints, no blurred or double vision. 2 mos ago Denies hair loss, + dry skin, -heat or cold intolerance, + weight gain, confusion. Denies any history of head or neck irradiation. Denies any family history of thyroid cancer. Family history of thyroid problems Thyroid US: Use of biotin: No No use of Kelp or seaweed Labs: Are consistent with hyperthyroidism due to Graves disease with positive antibody She currently on 15 mg of MMI sees h Dr. Mac for GUSTAVO. 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 She appears to be clinically and biochemically euthyroid on 15 mg of methimazole. Plan is to continue the current therapy. Went over the different options of treatment including the continuation of methimazole versus surgery versus radioactive iodine the patient is opting to stay on methimazole. We went over the side effects of methimazole occluding not limited to liver toxicity and agranulocytosis. She is now opting to consider thyroidectomy. We will recheck thyroid receptor antibodies. We will make a referral to Dr. Sumit Leugn for possible thyroidectomy Orders: Orders Thyrotropin Receptor Antibody Today E05.90 - Thyrotoxicosis, unspecified without thyrotoxic crisis or storm Referrals General Surgery Referral E05.90 - Thyrotoxicosis, unspecified without thyrotoxic crisis or storm Coding Level of Care Code Est Pt Level 3 (41112) Diagnoses Hyperthyroidism E05.90
== END 2023-07-11 12:34 | disposition home or self-care (01) ==
PROVIDERS: PCP Pediatrics; Visit Provider Internal Medicine Endocrinology, Diabetes & Metabolism
DX: E05.90 Thyrotoxicosis, unspecified without thyrotoxic crisis or storm (principal)
CPT/HCPCS: 99213

== ENCOUNTER 2023-07-11 10:55 | Outpatient (REF) | payer OTHER, SELFPAY ==
[2023-07-14 20:03] LABS: Thyrotropin Receptor Antibody 1.52 IU/L (<=2.00)
== END 2023-07-11 10:56 | disposition home or self-care (01) ==
LOC: HO.LAB 10:55
PROVIDERS: PCP Pediatrics; Visit Provider Internal Medicine Endocrinology, Diabetes & Metabolism
DX: E05.90 Thyrotoxicosis, unspecified without thyrotoxic crisis or storm (principal)
CPT/HCPCS: 36415; 83520; 99212

== ENCOUNTER 2023-10-17 09:34 | Outpatient (REF) | payer OTHER, SELFPAY ==
--- NOTE | ~2023-10-17 | MM_ITS ---
EXAMINATION: MM SCREENING DIGITAL BREAST TOMOSYNTHESIS, BILATERAL CLINICAL INFORMATION: Screening. Asymptomatic. COMPARISON: Mammography: Comparison is made with available priors TECHNIQUE: Digital breast mammography with tomosynthesis is performed in both the craniocaudal and mediolateral oblique views along with computer-aided detection (CAD). FINDINGS: The breasts are heterogeneously dense, which may obscure small masses (ACR BI-RADS breast composition Category c). Circumscribed oval mass in the left retroareolar region was previously demonstrated to be a stable benign mass with morphology of a fibroadenoma stable for more than 2 years. Right marker clip. Bilateral circumscribed oval masses which Consistent with benign fibrocystic changes. There are no significant masses, abnormal calcifications, or other abnormalities. MM/MM tomosynthesis screening BI IMPRESSION: No mammographic evidence of malignancy. ASSESSMENT: BI-RADS BI-RADS 2 - Benign Findings RECOMMENDATION: Routine annual mammography screening. 1 year F/U This examination should not preclude the clinical evaluation of a suspicious palpable abnormality. This patient's information was entered into a reminder system with a target due date for their next mammogram. Electronically signed by: Ena Sutherland DO 10/31/2023 08:56 AM EDT
== END 2023-10-17 09:35 | disposition home or self-care (01) ==
LOC: HO.MAMMO 09:34
PROVIDERS: PCP Pediatrics; Visit Provider Pediatrics
DX: Z12.31 Encounter for screening mammogram for malignant neoplasm of breast (principal)
CPT/HCPCS: 77063; 77067

== ENCOUNTER → 2023-10-17 09:45 | Outpatient (BNV) | payer OTHER, SELFPAY | PROVIDERS: PCP Pediatrics; Visit Provider Internal Medicine | DX: Z12.31 Encounter for screening mammogram for malignant neoplasm of breast (principal) | CPT/HCPCS: 77063; 77067 ==

== ENCOUNTER 2024-03-06 07:54 | Outpatient (REF) | payer OTHER, SELFPAY ==
[2024-03-06 10:21] LABS: Free T4 (Free Thyroxine) 1.01 ng/dL (0.71-1.85); Thyroid Stimulating Hormone 1.47 uIU/mL (0.32-4.0)
--- OUTSIDE RECORDS SUMMARY | 2024-03-06 11:12 | XMS_ITS | Encounter Summary ---
Author Organization [employer] Address [address] [place] [address] 7 [place] [address] Care Team Providers Care Card Boxer Name Role Phone Sushila Brizuela Primary Care Provider +1- [phone] Sandy Edwards MD Primary Care Pro vider Encounter Details Date Type Department Care Team (Latest Contact Info) Description 11/23/2020 Abstract [facility] CONVERSIONS Dental, Provider, DDS Social [...] Description 07/16/2024 8:00 AM EDT Office Visit [facility] ADULT DENTAL [address] [place] [address] Mercedes Mccormack documented as of this encounter Visit Diagnoses Not on filedocumented in this encounter Care Teams Card Boxer Relationship Specialty Start Date End Date Sushila Brizuela FNP PCP - General Family Medicine 10/24/21 08/10/22 Sandy Edwards MD [address] [place] [address] PCP - General Internal Medicine 08/11/22 documented as of this encounter
--- OUTSIDE RECORDS SUMMARY | 2024-03-06 11:12 | XMS_ITS | Encounter Summary ---
Author Organization [employer] Address [address] [place] [address] 7 [place] [address] Care Team Providers Care Church History Teacher Name Role Phone Sushila Brizuela Primary Care Provider +1- [phone] Sandy Edwards MD Primary Care Pro vider Encounter Details Date Type Department Care Team (Latest Contact Info) Description 06/24/2018 Abstract [facility] CONVERSIONS Dental, Provider, DDS Social History [...] Description 07/16/2024 8:00 AM EDT Office Visit [facility] ADULT DENTAL [address] [place] [address] Mercedes Mccormack documented as of this encounter Visit Diagnoses Not on filedocumented in this encounter Care Teams Church History Teacher Relationship Specialty Start Date End Date Sushila Brizuela FNP PCP - General Family Medicine 10/24/21 08/10/22 Sandy Edwards MD [address] [place] [address] PCP - General Internal Medicine 08/11/22 documented as of this encounter
--- OUTSIDE RECORDS SUMMARY | 2024-03-06 11:12 | XMS_ITS | Clinical Summary ---
Author Organization [employer] Address [address] [facility] 7t [place] [address] Care Team Providers Care Injection Molding Machine Setter Name Role Phone Sandy Edwards MD Primary [...] she has an appointment for FU with AUTOMATIC CORN GRINDER OPERATOR in June 2024. Mammogram: UTD, next one [...] Description 03/06/2024 9:15 AM EST Office Visit [facility] [address] [place] [address] Sandra Mclean MD Health care maintenance (Primary Dx); Overweight; Flexural eczema; Dietary counseling; Exercise counseling 03/06/2024 Orders Only GENERIC EXTERNAL DATA DEPARTMENT Provider, Generic External Data 03/06/2024 Travel 02/27/2024 Patient Outreach [facility] [address] [place] [address] Sandy Edwards MD Pre-visit Planning ([facility] unable to reach [facility]) 01/16/2024 9:00 AM EST Office Visit [facility] ADULT DENTAL [address] [place] [address] Mercedes Mccormack Dental calculus (Primary Dx); Dental [...] Description 07/16/2024 8:00 AM EDT Office Visit [facility] ADULT DENT[facility] [address] [place] [address] Mercedes Mccormack Health Maintenance Due Date Last [...] Stimulating Hormone 1.47 0.32 - 4.0 uIU/mL [facility] Comment:TSH 3rd Generation ( [facility]) 03/06/2024 8:32 AM EST 03/06/2024 8:32 AM EST Generic External Data Provider LAB BLOOD ORDERAB LES Final Result Performing Organization Address [facility] Co de Phone Number [facility] [address] [place] [phone] * T4, Free (03/06/2024 8:32 AM EST) Free T4 (Free Thyroxine) 1.01 0.71 - 1.85 ng/dL [facility] 03/06/2024 8:32 AM EST 03/06/2024 8:32 AM EST Generic External Data Provider LAB BLOOD ORDERAB LES Final Result Performing Organization Address [facility] Co de Phone Number [facility] [address] [place] [phone] * BI Mammogram Screening Tomosynthesis Bilateral (10/17/2023 9:45 AM EDT) Anatomical Region Laterality Modality Breast Bilateral Mammography 10/17/2023 9:45 AM EDT Narrative 10/31/2023 8:59 AM EDT ? [facility] ? [address] ?[place] [address] ? Mammography Report ? Signed ? Patient: Guillen,Sandra ?MR#: [id number] ? : 1980 ?Acct:[id number] ? Age/Sex: 43 / F ?ADM Date: 10/17/23 ? Loc: HO.MAMMO ? Attending Dr: Loraine Vang MD ? Ordering Physician: Loraine Vang MD ?Results: 2Be ?? nign Findings ? Date of Service: 10/17/23 ?Follow Up: 1 Year From Orig ?? inal Mammogram ? Procedure(s): MM tomosynthesis screening BI ?? Accession Number(s): [id number] ? cc: Loraine Vang MD ? EXAMINATION: [...] DD/ 0945 ? TD/TT: 10/17/23 1005 ? Carpet Cleaning Technician: ? Procedure Note Donotuseinterpreter, Image - 10/31/2023 [facility] [address] [place] [address] Mammography Report Signed Patient: Xander Guillen#: [id number] : 1980Acct:[id number] Age/Sex: 43 / FADM Date: 10/17/23 Loc: HO.MAMMO Attending Dr: Loraine Vang MD Ordering Physician: Loraine Vang MDResults: 2Be nign Findings Date of Service: 10/17/23Follow Up: 1 Year From Orig ina Mammogram Procedure(s): MM tomosynthesis screening BI Accession Number(s): [id number] cc: Loraine Vang MD EXAMINATION: MM SCREENING [...] their next mammogram. Electronically signed by: Ena Sutherland DO 10/31/2023 08:56 AM EDT Workstation: [employer] Dictated By: Ena Sutherland DO Signed By: <Electronically signed by Ena Sutherland DO in OV> 10/31/23 0856 DD/ 0945 TD/TT: 10/17/23 1005 Carpet Cleaning Technician: us Loraine Vang MD IMG BI PROCEDURES Edited Resu lt - Final * HIV Ab/Ag ([facility]) (10/11/2022 8:21 AM EDT) HIV AB/AG Nonreactive Nonreactive [facility] Comment:HIV-1 p24 Ag and/or HIV-1/HIV-2 Ab not detected.A test result that is nonreactive does not exclude thepossibility of exposure to or infection with HIV-1 and/orHIV-2. Nonreactive results in this assay for individualswith prior exposure to HIV-1 and/or HIV-2 may be due toantigen and antibody levels that are below the limit ofdetection of this assay.The [employer]ARMA HIV Ag/Ab Combo assay result andsupplemental assay results should be interpreted inconjunction with the patient's clinical presentation,history and other laboratory results. If the results areinconsistent with clinical evidence, additional testing issuggested to confirm the result. 10/11/2022 8:21 AM EDT 10/11/2022 11:16 AM EDT Sandy Paul MD LAB BLOOD ORDERAB LES Final Result Performing Organization Address City/[facility]/ZIP Co de Phone Number [facility] [address] [place] [phone] * Hepatitis C Antibody with Reflex to HCV, RNA, Quantitative, Real-Time PCR (10/11/2022 8:21 AM EDT) Pathologist [facility] Hepatitis C Antibody Nonreactive Nonreactive [facility] Comment:Antibodies to HCV no t detected; does not exclude early acuteHCV infection. Blood Venous blood specimen / Unknown 10/11/2022 8:21 AM EDT 10/11/2022 11:16 AM EDT Sandy Paul MD LAB BLOOD ORDERAB LES Final Result Performing Organization Address [facility]/ZIP Co de Phone Number [facility] [address] [place] [phone] * HPV mRNA E6/E7 w/Reflex to HPV Genotypes 16, 18/45 (03/01/2022 8:48 AM EST) Pathologist [facility] HPV nRNA E6/E7 Not Detected Not Detected [facility] Comment:Methodology: Transcr iption-Mediated AmplificationThis assay detects E6/E7 viral messenger RNA (mRNA) from 14high-risk HPV types (16,18,31,33,35,39,45,51,52,56,58,59,66,68).Cervical sources are required for HPV testing.If a vaginal source from a patient who has had atotal hysterectomy with removal of cervix wassubmitted, please contact the testing laboratoryfor alternative testing options.For additional information, please refer [email or web address] Plumb/faq/[email or web address](This link if provided for information/educational purposes only.)THIS TEST WAS PERFORMED AT:[facility] [place] [address] ([address] [id number] AYOUB MD HPV mRNA E6/E7 [facility] HPV 16 RNA [facility] HPV 18/45 RNA TNP [facility] 03/01/2022 8:48 AM EST 03/01/2022 1:00 PM EST us [facility] External Provider LAB CYT OLOGY ORDERABLES Final Result [facility] [address] [place] [address] [phone] * Pap Smear (03/01/2022 8:48 AM EST) 03/01/2022 8:48 AM EST 03/01/2022 1:00 PM EST Narrative [facility] - 03/17/2022 3:08 PM EST ----- ------- Name: Sandra Guillen ? Age/Sex: 41/F ? : 1980 Unit#: [id number] ?? Attend Dr: Trever Ruiz MD ?Re03/01/22 ?Status: DEP REF ? Location: HO.LNP ?Disch: ? ----- ------- SPEC : [id number] ? RECD: 03/01/22-1300 ? STATUS: ??SOUT ? REQ NUM: [id number] ? VERONICA: 03/01/22 ? SUBM DR: Trever [...] 66, 68) ? HPV testing performed by [facility], [place], [place]. ??See reference laboratory ?? portion of the EMR for entire report. ?Clinical Information LMP: 01/2022 Previous PAP test: 01/31/2021, Abnormal ? Material Received ?? ThinPrep-Cervical ----- ------- Signed (signature on file) Marie Bryson 03/17/22 1508 ? ----- ------- ? END OF REPORT ? [facility] External Provider LAB [facility] Final Result [facility] [address] [place] [address] [phone] from Last 3 Months or Most Recently Relevant to Health Maintenance Insurance N PARTIAL [facility] - HSN PARTIAL (MEDICAID) Care Teams Injection Molding Machine Setter Relationship Specialty Start Date End Date Sandy Edwards MD [address] [place] [address] PCP - General Internal Medicine 08/11/22
--- OUTSIDE RECORDS SUMMARY | 2024-03-06 11:12 | XMS_ITS | Encounter Summary ---
Author Organization [employer] Address [address] [facility] 7 [place] [address] Care Team Providers Care Clarification Operator Name Role Phone Sandy Edwards MD Primary Care Pro vider Reason for Visit * Reason Comments Pre-visit Planning SDOH unable to reach LVM Encounter Details Date Type Department Care Team (Late st Contact Info) Description 02/27/2024 Patient Outreach [facility] MED [facility] PED[facility] [address] [place], [place] [phone] Sandy Edwards MD [address] [place] [address] Pre-visit Planning (SDOH unable to reach LVM) [...] Description 07/16/2024 8:00 AM EDT Office Visit [facility] ADULT DENTAL [address] [place] [address] Mercedes Mccormack documented as of this encounter Visit Diagnoses Not on filedocumented in this encounter Additional Health Concerns Assessment Noted Time PHQ-9 Depression Total Score: 0 10/06/19 23 2:17 PM EDT documented as of this encounter Care Teams Clarification Operator Relationship Specialty Start Date End Date Sandy Edwards MD [address] [place] [address] PCP - General Internal Medicine 08/11/22 documented as of this encounter
--- OUTSIDE RECORDS SUMMARY | 2024-03-06 11:12 | XMS_ITS | Encounter Summary ---
Author Organization [employer] [facility] Address [address] [place] [address] Care Team Providers Care Public Policy Mediator Name Role Phone Sushila Brizuela Primary Care Provider +1- [phone] Sandy Edwards MD Primary Care Pro vider Encounter Details Date Type Department Care Team (Late st Contact Info) Description 07/27/2022 Abstract [facility] MEDICINE [address] [place], [place] [phone] Sushila Brizuela FNP [address] [place] [address] [place] [address] Social History Tobacco Use Types Packs/Day Years [...] Description 07/16/2024 8:00 AM EDT Office Visit [facility] ADULT DENTAL [address] [place] [address] Mercedes Mccormack documented as of this encounter Visit Diagnoses Not on filedocumented in this encounter Care Teams Public Policy Mediator Relationship Specialty Start Date End Date Sushila Brizuela FNP PCP - General Family Medicine 10/24/21 08/10/22 Sandy Edwards MD [address] [place] [address] PCP - General Internal Medicine 08/11/22 documented as of this encounter
[2024-03-07 07:37] LABS: Triiodothyronine T3 Total 127 ng/dL (76-181)
[2024-03-11 14:09] LABS: Thyrotropin Receptor Antibody <1.00 IU/L (<=2.00)
[2024-03-11 16:08] LABS: Thyroid Stimulating Immunoglob <89 % baseline (<140)
== END 2024-03-06 07:55 | disposition home or self-care (01) ==
LOC: HO.LAB 07:54
PROVIDERS: PCP Pediatrics; Visit Provider Student in an Organized Health Care Education/Training Program
DX: E05.00 Thyrotoxicosis with diffuse goiter without thyrotoxic crisis or storm (principal); Z79.899 Other long term (current) drug therapy
CPT/HCPCS: 36415; 83520; 84439; 84443; 84445; 84480; 99212

== ENCOUNTER 2024-03-06 07:54 | Outpatient (AMB) | payer OTHER, SELFPAY ==
[2024-03-06 07:55] VITALS: BP 112/82; PULSE 66; BMI 24.8
--- NOTE | 2024-03-06 07:55 | MHC.OFFVIS ---
Vital Signs 03/06/24 07:55 Height 5 ft 3 in Weight 139 lb 12.369 oz BMI 24.8 BP 112/82 Blood Pressure Location Lt brachial Position Sitting Pulse 66 Pulse Source Pulse Oximeter Intake Visit Reasons: hyperthyroidism Intake Note: Patient present today for hyperthyroidism office visit. 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 Diagnosed with Graves disease in 2021, has been on MMI since diagnosis. Currently on methimazole 15 mg daily She has appointment with Dr. Leung for eveluation of thyroidectomy on Mar 19 2024 Currently c/o dysphagia but no hoarseness of voice. Denies sensation of swelling in the neck or difficulty breathing while lying flat. [Denies] any tenderness in the neck. Denies any palpitations, tremors, weight loss, frequent bowel movements. has ocular complaints, no blurred or double vision. 2 mos ago Denies hair loss, + dry skin, -heat or cold intolerance, + weight gain, confusion. Denies any history of head or neck irradiation. Denies any family history of thyroid cancer. Family history of thyroid problems Has Mirena Use of biotin: No No use of Kelp or seaweed Has history of GUSTAVO , used to see Dr. Rico, was told doesnt need follow up , last seen 2023 Never smoker No family history of breast cancer Physical exam General: sitting comfortably in no acute distress HEENT: normocephalic/atraumatic, EOM intact, moist oral mucosa Neck: supple, symmetrical, no thyromegaly , no dorsocervical or supraclavicular fat pads Cardiac: normal heart sounds Pulm: normal breath sounds B/L, no added breath sounds Abd: not distended, no tenderness Extremities: no edema, no signs of myxedema Laboratory Tests 09/06/21 06/27/23 07/11/23 08:43 08:36 11:54 TSH 0.68 Free T4 0.89 Free T3 2.8 TSH Receptor Ab 4.97 H 1.52 [facility] Medical History Hyperthyroidism No pertinent past medical history Surgical History History of loop electrical excision procedure (LEEP) H/O breast biopsy Family History Other No known health problems Social History Household Members: Spouse and Children Household Members Other:: , 3 kids Alcohol intake: never Patient Tobacco Use Status: Never used Tobacco Current occupational status: employed 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 . She appears to be clinically euthyroid on 15 mg of methimazole. No recent TFTs done. We will obtain today. Plan is to continue the current therapy. Went over the different options of treatment including the continuation of methimazole versus surgery versus radioactive iodine the patient already has an appointment with Dr. Sumit Leung at [facility] for evaluation for total thyroidectomy on March 19. In the meantime I will also try to bring down the dose of methimazole. Plan: -ordered TSH, free T4, total T3, TSI and TR A/B antibodies -follow up in 6 weeks after patient has had appointment with surgery on March 19 -continue methimazole 15 mg daily, we will slowly plan to also titrate this down Plan See above Orders: Orders Thyroid Stimulating Immunoglob Today E05.90 - Thyrotoxicosis, unspecified without thyrotoxic crisis or storm Thyrotropin Receptor Antibody Today E05.90 - Thyrotoxicosis, unspecified without thyrotoxic crisis or storm Triiodothyronine T3 Total Today E05.90 - Thyrotoxicosis, unspecified without thyrotoxic crisis or storm Thyroid Stimulating Hormone Today E05.90 - Thyrotoxicosis, unspecified without thyrotoxic crisis or storm Free T4 (Free Thyroxine) Today E05.90 - Thyrotoxicosis, unspecified without thyrotoxic crisis or storm Medications: Refilled methimazole 15 mg (1.5 x 10 mg) PO DAILY 30 days 45 tabs 4RF E05.90 - Thyrotoxicosis, unspecified without thyrotoxic crisis or storm Patient Instructions: Do blood work, we will reach out with results Continue methimazole 15 mg daily for now Follow up in 6 weeks Coding Level of Care Code Est Pt Level 3 (09054) Diagnoses Hyperthyroidism E05
--- OUTSIDE RECORDS SUMMARY | 2024-03-06 10:48 | XMS_ITS | Encounter Summary ---
Author Organization [employer] Address [address] [place] [address] Care Team Providers Care Milk Wagon Driver Name Role Phone Sandy Edwards MD Primary Care Pro vider Reason for Visit * Reason Comments Pre-visit Planning SDOH unable to reach LVM Encounter Details Date Type Department Care Team (Late st Contact Info) Description 02/27/2024 Patient Outreach [facility] [address], [place] [phone] Sandy Edwards MD [address] [place] [address] Pre-visit Planning (SDOH unable to reach LVM) Social History Tobacco Use Types Packs/Day Years Used Date Smoking Tobacco: Never Passive Smoke Exposure: Never Smokeless Tobacco: Never Alcohol Use Standard Drinks/Week Comments Never 0 (1 standard drink = 0.6 oz pur e alcohol) Depression Answer Date Recorded Patient Health Questionnaire-9 Score 0 10/05/2022 Housing Stability Answer Date Recorded What is your housing situation today? I have miriam lamas 12/04/[address] you li ve. Do you have problems with any of the following? None of the above 12/04/2022 Food Insecurity Answer Date Recorded Within the past 12 months, y ou worried that your food would run out before you got money to buy more: Never True 12/04/2022 Within the past 12 months,th e food you bought just didn't last and you didn't have enough money to get more: Never True Transportation Answer Date Recorded In the past 12 months, has l ack of transportation kept you from medical appts, meetings, work or from getting things needed for daily living? No 12/04/2022 Utilities Answer Date Recorded In the past 12 months, has t he electric, gas, oil or water company threatened to shut off services in your home? No 12/04/2022 Depression Answer Date Recorded Patient Health Questionnaire-2 Score 0 10/05/2022 Comments No Sex and Gender Information Value Date Recorded Sex Assigned at Female 12/05/2021 10:17 AM EDT Legal Sex Female 10:17 AM EDT Gender Identity Female 12/05/2021 10:17 AM EDT Sexual Orientation Straight 12/05/2021 10 :17 AM EDT documented as of this encounter Progress Notes * Milly Dawn - 02/27/2024 3:54 PM EST ANTONY Rowan placed outbound call to patient to complete pre-visit planning. No answer at this time. Patient name and were not confirmed. CC left voicemail requesting return call. Direct contactinformation provided. documented in this encounter Plan of Treatment Upcoming Encounters Date Type Department Care Team (Late st Contact Info) Description 07/16/2024 8:00 AM EDT Office Visit [facility] [address] [place] [address] Mercedes Mccormack documented as of this encounter Visit Diagnoses Not on filedocumented in this encounter Additional Health Concerns Assessment Noted Time PHQ-9 Depression Total Score: 0 10/06/19 23 2:17 PM EDT documented as of this encounter Care Teams Milk Wagon Driver Relationship Specialty Start Date End Date Sandy Edwards MD [address] [place] [address] PCP - General Internal Medicine 08/11/22 documented as of this encounter
--- OUTSIDE RECORDS SUMMARY | 2024-03-06 10:49 | XMS_ITS | Encounter Summary ---
Author Organization [facility] Address [address] [place] [phone] Care Team Providers Care Electron Gun Inspector Name Role Phone Sushila Brizuela Primary Care Provider +1- [phone] Sandy Edwards MD Primary Care Pro vider Encounter Details Date Type Department Care Team (Late st Contact Info) Description 07/27/2022 Abstract [facility] [address] [place], [place] [id number] Sushila Brizuela FNP [address] [place] [address] Dept [place] [address] Social History Tobacco Use Types Packs/Day Years Used Date Smoking Tobacco: Never Assessed Comments Unknown Sex and Gender Information Value Date Recorded Sex Assigned at Female 12/05/2021 10:17 AM EDT Legal Sex Female 10:17 AM EDT Gender Identity Female 12/05/2021 10:17 AM EDT Sexual Orientation Straight 12/05/2021 10 :17 AM EDT documented as of this encounter Plan of Treatment Upcoming Encounters Date Type Department Care Team (Late st Contact Info) Description 07/16/2024 8:00 AM EDT Office Visit [facility] [address] [place] [address] Mercedes Mccormack documented as of this encounter Visit Diagnoses Not on filedocumented in this encounter Care Teams Electron Gun Inspector Relationship Specialty Start Date End Date Sushila Brizuela FNP PCP - General Family Medicine 10/24/21 08/10/22 Sandy Edwards MD [address] [place] [phone] PCP - General Internal Medicine 08/11/22 documented as of this encounter
--- OUTSIDE RECORDS SUMMARY | 2024-03-06 10:49 | XMS_ITS | Continuity of Care Document ---
Author Organization [facility] Address [address] [place] [address] ve [address] [place] [address]- Care Team Providers Care Ad Operations Coordinator Name Role Phone Not on Staff, PCP Primary Care Physician Unavail able Encounter [facility] Date(s): 11/09/23 - 02/16/[address] [place], [place] [address] Attending Physician: Sumit Leung MD Referring Physician: Aldo CHEATHAM, Leland Sam Encounter Type: Pre Office Visit Immunizations Given and Recorded Vaccine Date Status Refusal Reason SARS-CoV-2 (COVID-19) mRNA BNT-162b2 vac 07/20/20 Given SARS-CoV-2 (COVID-19) mRNA BNT-162b2 vac 06/29/20 Given Patient Care team information Care Team Personnel Name: Not on Staff, PCP Position: [facility] Physician (General Medicine) Member Role: PCP Insurance Providers Guarantor name: NA Health Plan Information #: 1 Payer: [employer] Member Number: [id number] Policy Number: NA Group Number: NA Health Plan Information #: 2 Payer: [employer] Member Number: [id number] Policy Number: NA Group Number: NA
--- OUTSIDE RECORDS SUMMARY | 2024-03-06 10:49 | XMS_ITS | Clinical Summary ---
Author Organization [employer] Address [address] [facility] 7t [place] [address] Care Team Providers Care Embedded Software Manager Name Role Phone Sandy Edwards MD Primary Care Pro vider Allergies No known active allergies Medications methIMAzole (Tapazole) 10 MG tablet TAKE 1 AND 1/2 TABS ORALLY DAILY 3 Active meclizine (Antivert) 12.5 MG tablet TAKE 1 TAB ORALLY 3 TIMES A DAY NEEDED FOR VERTIGO 3 Active ammonium lactate (Amlactin) 12 % cream Apply topically if needed for dry skin. 385 g 2 5 03/06/19 26 Active triamcinolone (Kenalog) 0.1 % cream Apply topically if needed in the morning and at bedtime (pain and swelling). 30 g 2 5 Active Active Problems Problem Noted Date Diagnosed Date Overweight 03/06/2024 Assessment & Plan (03/06/2024 9:01 AM EST): Discussed re weight reduction options including exercise, life style modifications, diet. Recommended to decrease soda and sugary beverage consumption, increase protein intake with meals (at least 1 portion of protein with each meal) to assist with satiety, increase dietary fiber Recommended at least 150 min/week of moderate intensity exercise. 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 Rx for Triamcinolone cream BID + Ammonium lactate cream. 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 Counseled re moderate exercise as tolerated, up to 20min/d Patient feels safe at home. PAP smear: overdue, she has an appointment for FU with [facility] in June 2024. Mammogram: UTD, next one due October 2025. Eye exam: UTD, next one due May 2025. Lipids/FBS: UTD, next one due in 2025. Vaccinations: She declined Covid and Influenza immunizations today, advised to get at earliest convenience at our clinic or closest pharmacy. Dental visit: UTD, next one due July 2024. Graves' disease 09/28/2022 Encounters Date Type Department Care Team Description 03/06/2024 9:15 AM EST Office Visit [facility] MED[facility]INE [address] [place] [address] Sandra Mclean MD Health care maintenance (Primary Dx); Overweight; Flexural eczema; Dietary counseling; Exercise counseling 03/06/2024 Orders Only GENERIC EXTERNAL DATA DEPARTMENT Provider, Generic External Data 03/06/2024 Travel 02/27/2024 Patient Outreach [facility] PEDS [address] [place] [address] Sandy Edwards MD Pre-visit Planning ([facility] unable to reach [facility]) 01/16/2024 9:00 AM EST Office Visit [facility] ADULT DENTAL [address] [place] [address] Mercedes Mccormack Dental calculus (Primary Dx); Dental plaque from Last 3 Months Immunizations Name Administration Dates Next Due Influenza injectable quadrivalent preservative f ree 12/13/2022 Tdap 12/13/2022 Social History Tobacco Use Types Packs/Day Years Used Date Smoking Tobacco: Never Passive Smoke Exposure: Never Smokeless Tobacco: Never Tobacco Cessation:Counseling Given: Not Answered Alcohol Use Standard Drinks/Week Comments Never 0 [...] Date Recorded Patient Health Questionnaire-2 Score 0 03/06/2024 Comments No Sex and Gender Information Value Date Recorded Sex Assigned at Female 12/05/2021 10:17 AM EDT Legal Sex Female 10:17 AM EDT Gender Identity Female 12/05/2021 10:17 AM EDT Sexual Orientation Straight 12/05/2021 10 :17 AM EDT Last Filed Vital Signs Vital Sign Reading Time Taken Comments Blood Pressure 127/76 03/06/2024 8:57 AM EST Pulse 63 03/06/2024 8:57 AM EST Temperature 35.3 ??C (95.6 ??F) 03/06/2024 8:57 AM ES T Respiratory Rate 12 03/06/2024 8:57 AM EST Oxygen Saturation 100% 03/06/2024 8:57 AM EST Inhaled Oxygen Concentration - - Weight 62.1 kg (137 lb) 03/06/2024 8:57 AM EST Height 154.9 cm (5' 1 ) 03/06/2024 8:57 AM EST Body Mass Index 25.89 03/06/2024 8:57 AM EST Plan of Treatment Upcoming Encounters Date Type Department Care Team (Late st Contact Info) Description 07/16/2024 8:00 AM EDT Office Visit [facility] ADULT DENTAL [address] [place] [address] Mercedes Mccormack Health Maintenance Due Date Last Done Comments Alcohol/Substance Use Screening 1991 Family Planning (PISQ) 08/17/1994 Cervical Cancer Screening 03/01/2023 HPV/Cotest 03/01/2023 03/01/2022, 12/06, 12/23/2019 Pap Smear 03/01/2023 03/01/2022 COVID-19 Vaccine ( season) 2023 07/20/2020, 06/29/2020 Influenza Vaccine (#1) 2023 12/13/2022 SDOH Screening 06/04/2024 06/05/2023 Hepatitis B Vaccines (1 of 3 - 19+ 3-dose series) 06/12/2024 Postponed from 08/17/1998 (Patient Refused) Dental Oral Exam 07/17/2024 01/16/2024, , 01/04/2017, Additional history exists Dental Prophylaxis 07/17/2024 01/16/2024, 0 07/14/2021, 11/23/2020, Additional history exists Dental X-Ray: Bitewings 01/16/2025 01/16/20 24, 11/23/2020, 06/24/2018, Additional history exists Depression Screening 03/06/2025 03/06/2024, 10/06/19 23 Tobacco Screening 03/06/2025 03/06/2024 Mammogram 10/16/2025 10/17/2023, 09/0 07/2022, 10/11/2022, Additional history exists Dental X-Ray: Full Mouth 01/16/2027 024, 03/02/2020, 06/24/2018, Additional history exists Zoster Vaccines (1 of 2) 08/17/2029 DTaP/Tdap/Td Vaccines (2 - Td or Tdap) 12/13/2032 12/13/2022 RSV Patients and Patients Aged 60 years or older (1 - 1-dose 75+ series) 08/17/2054 HIV Screening Completed 10/11/2022, 08/04/2021 Hepatitis C Screening Completed 10/11/2022 HIB Vaccines Aged Out No longer eligi ble based on patient's age to complete this topic HPV Vaccines Aged Out No longer eligi ble based on patient's age to complete this topic Hepatitis A Vaccines Aged Out No long er eligible based on patient's age to complete this topic IPV Vaccines Aged Out No longer eligi ble based on patient's age to complete this topic Meningococcal Vaccine Aged Out No maurice jany eligible based on patient's age to complete this topic Pneumococcal Vaccine: Pediatrics (0 to 5 Years) and At-Risk Patients (6 to 49) Years) Aged Out No longer eligible based on patient's age to complete this topic RSV under 20 months Aged Out No longe r eligible based on patient's age to complete this topic Rotavirus Vaccines Aged Out No longer eligible based on patient's age to complete this topic Procedures Procedure Name Priority Date/Time Associated Diagnosis Comments TSH Routine 03/06/2024 8:32 AM EST T4, FREE Routine 03/06/2024 8:32 AM EST COMPREHENSIVE PERIODONTAL EVALUATION - NEW OR ESTABLISHED PATIENT Routine 01/16/2024 9:00 AM EST PERIODIC ORAL EVALUATION - ESTABLISHED PATIENT Routine 01/16/2024 9:00 AM EST ORAL HYGIENE INSTRUCTIONS Routine 01/16/2024 9:00 AM EST Dental calculus Dental plaque DIAGNOSTIC - DIAGNOSTIC IMAGING - INTRAORAL - COMPREHENSIVE SERIES OF RADIOGRAPHIC IMAGES Routine 01/16/2024 9:00 AM EST PROPHYLAXIS - ADULT Routine 01/16/2024 9 :00 AM EST Dental calculus Dental plaque ADJUNCTIVE GENERAL SERVICES - PROFESSIONAL VISITS - CASE PRESENTATION, SUBSEQUENT TO DETAILED AND EXTENSIVE TREATMENT PLANNING Routine 01/16/2024 9:00 AM EST BI MAMMOGRAM SCREENING TOMOSYNTHESIS BILATERAL Routine 10/17/2023 9:45 AM EDT HEPATITIS C AB W/REFL TO HCV RNA, QN, PCR Routine 10/11/2022 8:21 AM EDT Health care maintenance HIV ANTIBODY/ANTIGEN ([place] [facility]) Routine 10/11/2022 8:21 AM EDT HPV MRNA E6/E7 REFLEX TO HPV 16, 18/45 Routine 03/01/2022 8:48 AM EST PAP SMEAR Routine 03/01/2022 8:48 AM EST from Last 3 Months or Most Recently Relevant to Health Maintenance Results * TSH (03/06/2024 8:32 AM EST) Thyroid Stimulating Hormone 1.47 0.32 - 4.0 uIU/mL [facility] Comment:TSH 3rd Generation ( [facility]) 03/06/2024 8:32 AM EST 03/06/2024 8:32 AM EST Generic External Data Provider LAB BLOOD ORDERAB LES Final Result Performing Organization Address [facility] Co de Phone Number [facility] [address] [place] [phone] * T4, Free (03/06/2024 8:32 AM EST) Free T4 (Free Thyroxine) 1.01 0.71 - 1.85 ng/dL [facility] 03/06/2024 8:32 AM EST 03/06/2024 8:32 AM EST Generic External Data Provider LAB BLOOD ORDERAB LES Final Result Performing Organization Address [facility] Co de Phone Number [facility] [address] [place] [phone] * BI Mammogram Screening Tomosynthesis Bilateral (10/17/2023 9:45 AM EDT) Anatomical Region Laterality Modality Breast Bilateral Mammography 10/17/2023 9:45 AM EDT Narrative 10/31/2023 8:59 AM EDT ? [facility] ? [address] ?[place] [address] ? Mammography Report ? Signed ? Patient: Guillen,Sandra ?MR#: [id number] ? : 1980 ?Acct:[id number] ? Age/Sex: 43 / F ?ADM Date: 10/17/23 ? Loc: HO.MAMMO ? Attending Dr: Loraine Vang MD ? Ordering Physician: Loraine Vang MD ?Results: 2Be ?? nign Findings ? Date of Service: 10/17/23 ?Follow Up: 1 Year From Orig ?? inal Mammogram ? Procedure(s): MM tomosynthesis screening BI ?? Accession Number(s): [id number] ? cc: Loraine Vang MD ? EXAMINATION: ?? MM SCREENING DIGITAL BREAST TOMOSYNTHESIS, BILATERAL ? CLINICAL INFORMATION: ? Screening. Asymptomatic. ? COMPARISON: ?? Mammography: Comparison is made with available priors ? TECHNIQUE: ?? Digital breast mammography with tomosynthesis is performed in both the ?? craniocaudal and mediolateral oblique views along with computer-aided ?? detection (CAD). ? FINDINGS: ?? The breasts are heterogeneously dense, which may obscure small masses ?? (ACR BI-RADS breast composition Category c). ?? Circumscribed oval mass in the left retroareolar region was previously ?? demonstrated to be a stable benign mass with morphology of a ?? fibroadenoma stable for more than 2 years. ?? Right marker clip. ?? Bilateral circumscribed oval masses which ?? Consistent with benign fibrocystic changes. ?? There are no significant masses, abnormal calcifications, or other ?? abnormalities. ? MM/MM tomosynthesis screening BI ?? IMPRESSION: ?? No mammographic evidence of malignancy. ? ASSESSMENT: ? BI-RADS BI-RADS 2 - Benign Findings ? RECOMMENDATION: ?? Routine annual mammography screening. ? 1 year F/U ? This examination should not preclude the clinical evaluation of a ?? suspicious palpable abnormality. ? This patient's information was entered into a reminder system with a ?? target due date for their next mammogram. ? Electronically signed by: ??Ena Sutherland DO ??10/31/2023 08:56 AM EDT ?? RP ? Dictated By: ?Ena Sutherland DO ? Signed By: ?<Electronically signed by Ena Sutherland, DO in OV> ? 10/31/23 0856 ? DD/ 0945 ? TD/TT: 10/17/23 1005 ? Cement Finisher Apprentice: ? Procedure Note Donotuseinterpreter, Image - 10/31/2023 [facility] [address] [place] [address] Mammography Report Signed Patient: Xander Guillen#: [id number] : 1980Acct:[id number] Age/Sex: 43 / FADM Date: 10/17/23 Loc: HO.MAMMO Attending Dr: Loarine Vang MD Ordering Physician: Loraine Vang MDResults: 2Be nign Findings Date of Service: 10/17/23Follow Up: 1 Year From Orig ina Mammogram Procedure(s): MM tomosynthesis screening BI Accession Number(s): [id number] cc: Loraine Vang MD EXAMINATION: MM SCREENING DIGITAL BREAST TOMOSYNTHESIS, BILATERAL CLINICAL INFORMATION: Screening. Asymptomatic. COMPARISON: Mammography: Comparison is made with available priors TECHNIQUE: Digital breast mammography with tomosynthesis is performed in both the craniocaudal and mediolateral oblique views along with computer-aided detection (CAD). FINDINGS: The breasts are heterogeneously dense, which may obscure small masses (ACR BI-RADS breast composition Category c). Circumscribed oval mass in the left retroareolar region was previously demonstrated to be a stable benign mass with morphology of a fibroadenoma stable for more than 2 years. Right marker clip. Bilateral circumscribed oval masses which Consistent with benign fibrocystic changes. There are no significant masses, abnormal calcifications, or other abnormalities. MM/MM tomosynthesis screening BI IMPRESSION: No mammographic evidence of malignancy. ASSESSMENT: BI-RADS BI-RADS 2 - Benign Findings RECOMMENDATION: Routine annual mammography screening. 1 year F/U This examination should not preclude the clinical evaluation of a suspicious palpable abnormality. This patient's information was entered into a reminder system with a target due date for their next mammogram. Electronically signed by: Ena Sutherladn DO 10/31/2023 08:56 AM EDT Workstation: [id number] Dictated By: Ena Sutherland DO Signed By: <Electronically signed by Ena Sutherland DO in OV> 10/31/23 0856 DD/ 0945 TD/TT: 10/17/23 1005 Cement Finisher Apprentice: us Loraine Vang MD IMG BI PROCEDURES Edited Resu lt - Final * HIV Ab/Ag ([place] [facility]) (10/11/2022 8:21 AM EDT) HIV AB/AG Nonreactive Nonreactive [facility] Comment:HIV-1 p24 Ag and/or HIV-1/HIV-2 Ab not detected.A test result that is nonreactive does not exclude thepossibility of exposure to or infection with HIV-1 and/orHIV-2. Nonreactive results in this assay for individualswith prior exposure to HIV-1 and/or HIV-2 may be due toantigen and antibody levels that are below the limit ofdetection of this assay.The Resoomay HIV Ag/Ab Combo assay result andsupplemental assay results should be interpreted inconjunction with the patient's clinical presentation,history and other laboratory results. If the results areinconsistent with clinical evidence, additional testing issuggested to confirm the result. 10/11/2022 8:21 AM EDT 10/11/2022 11:16 AM EDT Sandy Paul MD LAB BLOOD ORDERAB LES Final Result Performing Organization Address City/[facility]/ZIP Co de Phone Number [facility] [address] [place] [phone] * Hepatitis C Antibody with Reflex to HCV, RNA, Quantitative, Real-Time PCR (10/11/2022 8:21 AM EDT) Pathologist [facility] Hepatitis C Antibody Nonreactive Nonreactive [facility] Comment:Antibodies to HCV no t detected; does not exclude early acuteHCV infection. Blood Venous blood specimen / Unknown 10/11/2022 8:21 AM EDT 10/11/2022 11:16 AM EDT Sandy Paul MD LAB BLOOD ORDERAB LES Final Result Performing Organization Address [facility]/ZIP Co de Phone Number [facility] [address] [place] [phone] * HPV mRNA E6/E7 w/Reflex to HPV Genotypes 16, 18/45 (03/01/2022 8:48 AM EST) Pathologist [facility] HPV nRNA E6/E7 Not Detected Not Detected [facility] Comment:Methodology: Transcr iption-Mediated AmplificationThis assay detects E6/E7 viral messenger RNA (mRNA) from 14high-risk HPV types (16,18,31,33,35,39,45,51,52,56,58,59,66,68).Cervical sources are required for HPV testing.If a vaginal source from a patient who has had atotal hysterectomy with removal of cervix wassubmitted, please contact the testing laboratoryfor alternative testing options.For additional information, please refer tohttp://education.Productiv/faq/HEO748q7(This link if provided for information/educational purposes only.)THIS TEST WAS PERFORMED AT:[employer] [place] [address] ([address] [phone] AYOUB MD HPV mRNA E6/E7 [facility] HPV 16 RNA [facility] HPV 18/45 RNA TNP [facility] 03/01/2022 8:48 AM EST 03/01/2022 1:00 PM EST us [facility] External Provider LAB CYT OLOGY ORDERABLES Final Result [facility] [address] [place] [phone] * Pap Smear (03/01/2022 8:48 AM EST) 03/01/2022 8:48 AM EST 03/01/2022 1:00 PM EST Narrative [facility] - 03/17/2022 3:08 PM EST ----- ------- Name: Sandra Guillen ? Age/Sex: 41/F ? : 1980 Unit#: [id number] ?? Attend Dr: Trever Ruiz MD ?Re03/01/22 ?Status: DEP REF ? Location: HO.LNP ?Disch: ? ----- ------- SPEC : [id number] ? RECD: 03/01/22-1300 ? STATUS: ??SOUT ? REQ NUM: [id number] ? VERONICA: 03/01/22 ? SUBM DR: Trever Ruiz MD ? ENTERED: ??03/01/22 ?SP TYPE: Pap Smr ?OTHR : ? ORDERED: ??Pap Smear ? Interpretation ?? Satisfactory for evaluation. ?? No endocervical cells seen. ?? Negative for intraepithelial lesion or malignancy. ? HPV mRNA E6/E7: ?NOT DETECTED ? This assay detects E6/E7 viral messenger RNA (mRNA) from 14 high-risk HPV types (16, 18, ?? 31, 33, 35, 39, 45, 51, 52, 56, 58, 59, 66, 68) ? HPV testing performed by [employer], [place], [place]. ??See reference laboratory ?? portion of the EMR for entire report. ?Clinical Information LMP: 01/2022 Previous PAP test: 01/31/2021, Abnormal ? Material Received ?? ThinPrep-Cervical ----- ------- Signed (signature on file) Marie Bryson 03/17/22 1508 ? ----- ------- ? END OF REPORT ? [facility] External Provider LAB [facility] ORDERABLES Final Result [facility] [address] [place] [phone] from Last 3 Months or Most Recently Relevant to Health Maintenance Insurance N PARTIAL [facility] PARTIAL (MEDICAID) Care Teams Embedded Software Manager Relationship Specialty Start Date End Date Sandy Edwards MD [address] [place] [phone] PCP - General Internal Medicine 08/11/22
--- OUTSIDE RECORDS SUMMARY | 2024-03-06 10:49 | XMS_ITS | Encounter Summary ---
Author Organization [employer] Address [address] [place] [address] 7 [place] [address] Care Team Providers Care Project Control Manager Name Role Phone Sushila Brizuela Primary Care Provider [phone]- [phone] Sandy Edwards MD Primary Care Pro vider Encounter Details Date Type Department Care Team (Latest Contact Info) Description 06/24/2018 Abstract [facility] CONVERSIONS Dental, Provider, DDS Social History Tobacco Use Types Packs/Day Years [...] Description 07/16/2024 8:00 AM EDT Office Visit [facility] ADULT DENTAL [address] [place] [address] Mercedes Mccormack documented as of this encounter Visit Diagnoses Not on filedocumented in this encounter Care Teams Project Control Manager Relationship Specialty Start Date End Date Sushila Brizuela FNP PCP - General Family Medicine 10/24/21 08/10/22 Sandy Edwards MD [address] [place] [address] PCP - General Internal Medicine 08/11/22 documented as of this encounter
--- OUTSIDE RECORDS SUMMARY | 2024-03-06 10:49 | XMS_ITS | Encounter Summary ---
Author Organization [employer] Address [address] [place] [address] 7 [place] [address] Care Team Providers Care Truck Supervisor Name Role Phone Sushila Brizuela Primary Care Provider +1- [phone] Sandy Edwards MD Primary Care Pro vider Encounter Details Date Type Department Care Team (Latest Contact Info) Description 11/23/2020 Abstract [facility] Dental, Provider, DDS Social History Tobacco [...] 07/16/2024 8:00 AM EDT Office Visit [facility] ADULT [facility] [address] [place] [address] Mercedes Mccormack documented as of this encounter Visit Diagnoses Not on filedocumented in this encounter Care Teams Truck Supervisor Relationship Specialty Start Date End Date Sushila Brizuela FNP PCP - General Family Medicine 10/24/21 08/10/22 Sandy Edwards MD [address] [place] [address] PCP - General Internal Medicine 08/11/22 documented as of this encounter
== END 2024-03-06 08:16 | disposition home or self-care (01) ==
PROVIDERS: PCP Pediatrics; Visit Provider Student in an Organized Health Care Education/Training Program
DX: E05.90 Thyrotoxicosis, unspecified without thyrotoxic crisis or storm (principal)
CPT/HCPCS: 99213

== ENCOUNTER 2024-04-17 08:13 | Outpatient (AMB) | payer OTHER, SELFPAY ==
[2024-04-17 08:23] VITALS: BP 114/68; PULSE 59; O2SAT 99; BMI 24.2
--- NOTE | 2024-04-17 08:23 | A.OFFVIS_ITS ---
Vital Signs 04/17/24 08:23 Height 5 ft 3 in Weight 136 lb 10.986 oz BMI 24.2 BP 114/68 Blood Pressure Location Rt brachial Position Sitting Pulse 59 Pulse Source Pulse Oximeter Pulse Oximetry (%) 99 Oxygen Delivery Method Room Air Intake Visit Reasons: hyperthyroidism Intake Note: Patient present today for hyperthyroidism office visit. 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 Diagnosed with Graves disease in 2021, has been on MMI since diagnosis. Currently on methimazole 15 mg daily She has appointment with Dr. Leung for eveluation of thyroidectomy on Mar 19 2024 Currently c/o dysphagia but no hoarseness of voice. Denies sensation of swelling in the neck or difficulty breathing while lying flat. [Denies] any tenderness in the neck. Denies any palpitations, tremors, weight loss, frequent bowel movements. has ocular complaints, no blurred or double vision. 2 mos ago Denies hair loss, + dry skin, -heat or cold intolerance, + weight gain, confusion. Denies any history of head or neck irradiation. Denies any family history of thyroid cancer. Family history of thyroid problems Has Mirena Use of biotin: No No use of Kelp or seaweed Has history of GUSTAVO , used to see Dr. Rico, was told doesnt need follow up , last seen 2023 Never smoker No family history of breast cancer interval history 03/06/2024: TSH 1.47, free T4 1.01, total T3-1 27, TSI less than 89, TSH receptor antibody less than 1 all within normal limits 03/12/2024: Methimazole decreased from 15 mg daily to 10 mg daily 04/03/2024: Evaluated by Dr. Sumit Leung at [facility] for possibly total thyroidectomy but since her antibodies are negative, and blood work as within normal limits, decision was made to consider trying to wean her off methimazole to assess for remission. If she relapses, can consider definitive therapy options such as YAN or total thyroidectomy. Repeat blood work would be due April denies tremors, palpitations, overall feeling well. Physical exam General: sitting comfortably in no acute distress HEENT: normocephalic/atraumatic, EOM intact, moist oral mucosa Neck: supple, symmetrical, no thyromegaly , no dorsocervical or supraclavicular fat pads Cardiac: normal heart sounds Pulm: normal breath sounds B/L, no added breath sounds Abd: not distended, no tenderness Extremities: no edema, no signs of myxedema Laboratory Tests 09/06/21 06/27/23 07/11/23 08:43 08:36 11:54 TSH 0.68 Free T4 0.89 Free T3 2.8 TSH Receptor Ab 4.97 H 1.52 Laboratory Tests 06/27/23 03/06/24 08:36 08:32 TSH 0.68 1.47 Free T4 0.89 1.01 Total T3 127 Thyroid Stim Immunoglob <89 TSH Receptor Ab <1.00 PFSH Medical History Hyperthyroidism No pertinent past medical history Surgical History History of loop electrical excision procedure (LEEP) H/O breast biopsy Family History Other No known health problems Social History Household Members: Spouse and Children Household Members Other:: , 3 kids Alcohol intake: never Patient Tobacco Use Status: Never used Tobacco Current occupational status: employed 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 . 03/06/2024: TSH 1.47, free T4 1.01, total T3-1 27, TSI less than 89, TSH receptor antibody less than 1 all within normal limits 03/12/2024: Methimazole decreased from 15 mg daily to 10 mg daily 04/03/2024: Evaluated by Dr. Sumit Leung at [facility] for possibly total thyroidectomy but since her antibodies are negative, and blood work as within normal limits, decision was made to consider trying to wean her off methimazole to assess for remission. If she relapses, can consider definitive therapy options such as YAN or total thyroidectomy. Repeat blood work would be due April I discussed with her today that given her antibodies negative and blood work looks normal, she might be in remission, and we will try to slowly bring down the dose of methimazole over the next few months. She is due for repeat blood work next week, we will communicate results with her and see if we can wean down methimazole to 7.5 mg daily if blood work looks normal. I also discussed with her that once we slowly bring down the dose of methimazole, if she relapses or once she is off it and she relapses, we can consider definitive therapy options such as total thyroidectomy or radioactive iodine ablation. I explained to her need for levothyroxine hormone replacement after a total thyroidectomy. I also explained to her what is involved in radioactive iodine ablation, she does not have any active Graves orbitopathy, she is a nonsmoker, no family history of breast cancer, no personal history of cancer. I did discuss with her that she might need levothyroxine after radioactive iodine ablation as well. Patient verbalized understanding. Plan: - TSH, free T4, total T3, to be done next week orders already in place. -follow up in Three months -continue methimazole 10 mg daily, we will slowly plan to also titrate this down Plan See above Patient Instructions: Continue methimazole 10 mg daily Do blood work next week around 04/23/2024, we will reach out with the results and let you know further instructions regarding changes in medication and repeat blood work Follow up in 3 months Coding Level of Care Code Est Pt Level 3 (58074) Diagnoses Hyperthyroidism E05.90
--- OUTSIDE RECORDS SUMMARY | 2024-04-17 08:34 | XMS_ITS | Encounter Summary ---
Author Organization [employer] Address [address] [place] [address] 7 [place] [address] Care Team Providers Care Telescope Operator Name Role Phone Sushila Brizuela Primary Care Provider +1- [phone] Sandy Edwards MD Primary Care Pro vider Encounter Details Date Type Department Care Team (Latest Contact Info) Description 11/23/2020 Abstract [facility] CONVERSIONS Dental, Provider, DDS Social History [...] Description 07/16/2024 8:00 AM EDT Office Visit [facility] ADULT DENTAL [address] [place] [address] Mercedes Mccormack documented as of this encounter Visit Diagnoses Not on filedocumented in this encounter Care Teams Telescope Operator Relationship Specialty Start Date End Date Sushila Brizuela FNP PCP - General Family Medicine 10/24/21 08/10/22 Sandy Edwards MD [address] [place] [address] PCP - General Internal Medicine 08/11/22 documented as of this encounter
--- OUTSIDE RECORDS SUMMARY | 2024-04-17 08:34 | XMS_ITS | Continuity of Care Document ---
Author Organization [facility] Address [address] [place] [address] [address] [place] [address]- Care Team Providers Care Lab Manager Name Role Phone Taj CHEATHAM, Loraine Pedroza Primary Care Physician [place] [facility]): [place] - 04/10/[address] [place] [address]- Encounter Diagnosis Graves' disease(Discharge Diagnosis) - 04/03/24 Attending Physician: Sumit Leung MD Referring Physician: Leland Carlson MD Encounter Type: Office Visit Allergies, Adverse Reactions, Alerts No Known Medication Allergies Immunizations Given and Recorded Vaccine Date Status Refusal Reason SARS-CoV-2 (COVID-19) mRNA BNT-162b2 vac 07/20/20 Given SARS-CoV-2 (COVID-19) mRNA BNT-162b2 vac 06/29/20 Given Medications ammonium lactate 12% topical cream Topical, 2 Refill(s), Apply topically if needed for dry skin., 0 Refills, 03/05/24 7:00:00 PM EST, Partial fill upon patient request if the prescription is for a schedule II opioid drug. Start Date: 03/05/24 Status: Ordered Repeat number: 1 methimazole 10 mg oral tablet 10 mg, 1, tablet, By Mouth, Every 8 hours, Refills 0, Maintenance, 04/03/24 2:09:00 PM EST, Partial fill upon patient request if the prescription is for a schedule II opioid drug. Start Date: 04/03/24 Status: Ordered Repeat number: 1 triamcinolone 0.1% topical cream Topical, 2 Refill(s), Apply topically if needed in the morning and at bedtime (pain and swelling).,0 Refills, 03/05/24 7:00:00 PM EST, Partial fill upon patient request if the prescription is for a schedule II opioid drug. Start Date: 03/05/24 Status: Ordered Repeat number: 1 Problem List Condition Confirmation Course Effective Dates Status Health St atus Informant Graves' disease Confirmed Active Diagnosis Diagnosis Type Effective Dates Health Status inical Service Informant Graves' disease Discharge Diagnosis 04/03/24 Vital Signs Most recent to oldest [Reference Range]: 1 Height 160 cm (04/03/24 2:10 PM) Weight 63.1 kg (04/03/24 2:10 PM) Pulse Rate [55-90 bpm] 69 bpm (04/03/24 2:10 PM) Body Mass Index [18.5-24.99 kg/m2] 24.65 kg/m2 (04/03/24 2:10 PM) Blood Pressure [90-138/55-84 mm Hg] 153/ 82mm Hg *H* (04/03/24 2:10 PM) Temperature [96.8-100.4 DegF] 97.3 DegF (04/03/24 2:10 PM) Blood pressure sites Arm, left (04/03/24 2:10 PM) Temperature Route Temporal (04/03/24 2:10 PM) Weight Obtained Via Standing scale (04/03/24 2:10 PM) Social History Social History Type Response Smoking Status Never (less than 100 in lifetime) entered on: 04/03/24 Sex Sex Representation Female (finding) Patient Care team information Care Team Personnel Name: Loraine Vang MD Position: S Outreach Member Role: PCP Address: [address] [place] [address] Telecom: Care Team Related Persons Name: TAYLOR DOMINGUEZ Insurance Providers Guarantor name: RUPERTO Health Plan Information #: 1 Payer: [employer] DIRECT Member Number: [id number] Policy Number: NA Group Number: NA Health Plan Information #: 2 Payer: [employer] DIRECT Member Number: [id number] Policy Number: NA Group Number: NA
--- OUTSIDE RECORDS SUMMARY | 2024-04-17 08:34 | XMS_ITS | Encounter Summary ---
Author Organization [employer] Address [address] [place] [address] 7 [place] [address] Care Team Providers Care Nurses' Association Executive Director Name Role Phone Sushila Brizuela Primary Care Provider +1- [phone] Sandy Edwards MD Primary Care Pro vider Encounter Details Date Type Department Care Team (Latest Contact Info) Description 06/24/2018 Abstract [facility] CONVERSIONS Dental, Provider, DDS Social History [...] Description 07/16/2024 8:00 AM EDT Office Visit [facility] ADULT DENTAL [address] [place] [address] Mercedes Mccormack documented as of this encounter Visit Diagnoses Not on filedocumented in this encounter Care Teams Nurses' Association Executive Director Relationship Specialty Start Date End Date Sushila Brizuela FNP PCP - General Family Medicine 10/24/21 08/10/22 Sandy Edwards MD [address] [place] [address] PCP - General Internal Medicine 08/11/22 documented as of this encounter
--- OUTSIDE RECORDS SUMMARY | 2024-04-17 08:35 | XMS_ITS | Encounter Summary ---
Author Organization [employer] [facility] Address [address] [place] [address] Care Team Providers Care Social Media Executive Name Role Phone Sushila Brizuela Primary Care Provider +1- [phone] Sandy Edwards MD Primary Care Pro vider Encounter Details Date Type Department Care Team (Late st Contact Info) Description 07/27/2022 Abstract [facility] MEDICINE [address] [place], [place] [phone] Sushila Brizuela FNP [address] [place] [address] Dept [place] [address] Social History Tobacco Use Types Packs/Day Years [...] Description 07/16/2024 8:00 AM EDT Office Visit [facility] ADULT DENTAL [address] [place] [address] Mercedes Mccormack documented as of this encounter Visit Diagnoses Not on filedocumented in this encounter Care Teams Social Media Executive Relationship Specialty Start Date End Date Sushila Brizuela FNP PCP - General Family Medicine 10/24/21 08/10/22 Sandy Edwards MD [address] [place] [address] PCP - General Internal Medicine 08/11/22 documented as of this encounter
--- OUTSIDE RECORDS SUMMARY | 2024-04-17 08:35 | XMS_ITS | Clinical Summary ---
Author Organization [employer] Address [address] [facility] 7[address] [place] [address] Care Team Providers Care C Software Engineer Name Role Phone Sandy Edwards MD Primary [...] she has an appointment for FU with BAR EXAMINER in June 2024. Mammogram: UTD, next one [...] Description 03/06/2024 9:15 AM EST Office Visit [facility] MEDICINE [address] [place] [address] Sandra Mclean MD Health care maintenance (Primary Dx); Overweight; Flexural eczema; Dietary counseling; Exercise counseling 03/06/2024 Orders Only GENERIC EXTERNAL DATA DEPARTMENT Provider, Generic External Data 03/06/2024 Travel 02/27/2024 Patient Outreach [facility] MED & PEDS [address] [place] [address] Sandy Edwards MD Pre-visit Planning ([facility] unable to reach [facility]) from Last 3 Months Immunizations Name Administration [...] [facility] ADULT DENTAL [address] [place] [address] Mercedes Mccormack Health Maintenance Due Date Last Done Comments Alcohol/Substance Use Screening 1991 Cervical Cancer Screening 03/01/2023 HPV/Cotest 03/01/2023 03/01/2022, 12/06, 12/23/2019 Pap Smear 03/01/2023 03/01/2022 COVID-19 Vaccine ( - season) 2023 07/20/2020, 06/29/2020 Influenza Vaccine (#1) [...] history exists Depression Screening 03/06/2025 03/06/2024, 10/06/19 Family Planning (PISQ) 03/06/2025 03/06/2024 Tobacco Screening 03/06/2025 03/06/2024 Mammogram 10/16/2025 10/17/2023, [...] Procedure Name Priority Date/Time Associated Diagnosis Comments TSI (THYROID STIMULATING IMMUNOGLOBULIN) Routine 03/06/2024 8:32 AM EST TRAB (TSH RECEPTOR BINDING ANTIBODY) Routine 03/06/2024 8:32 AM EST T3, TOTAL Routine 03/06/2024 8:32 AM EST TSH Routine 03/06/2024 8:32 AM EST T4, FREE Routine 03/06/2024 8:32 AM EST PROPHYLAXIS - ADULT Routine 01/16/2024 9 :00 AM EST Dental calculus Dental plaque INTRAORAL - COMPLETE SERIES OF RADIOGRAPHIC IMAGES Routine 01/16/2024 9:00 AM EST PERIODIC ORAL EVALUATION - ESTABLISHED PATIENT Routine 01/16/2024 9:00 AM EST BI MAMMOGRAM [...] Recently Relevant to Health Maintenance Results * TSI (Thyroid Stimulating Immunoglobulin) (03/06/2024 8:32 AM EST) Thyroid Stimulating Immunoglobulin <89 <140 % baseline [facility] Comment: Thyroid stimulating immunoglobulins (TSI) can engagethe TSH receptors resulting in hyperthyroidism inGraves' disease patients. TSI levels can be useful inmonitoring the clinical outcome of Graves' disease aswell as assessing the potential for hyperthyroidismfrom maternal- transfer. TSI results greater thanor equal to (>=) 140% of the Reference Control areconsidered positive.NOTE:A serum TSH level greater than 350 micro-InternationalUnits/mL can interfere with the TSI bioassay andpotentially give false positive results.Patients who are and are suspected of havinghyperthyroidism should have both TSI and humanChorionic Gonadotropin(hCG) tests measured. A serumhCG level greater than 40,625 mIU/mL can interferewith the TSI bioassay and may give false negativeresults. In these patients it is recommended thata second TSI be obtained when the hCG concentrationfalls below 40,625 mIU/mL (usually after [id number]-ykmkv gestation).The analytical performance characteristics of thisassay have been determined by [facility], [place]. ??The modificationshave not been cleared or approved by the FDA. ??Thisassay has been validated pursuant to the CLIAregulations and is used for clinical purposes.THIS TEST WAS PERFORMED AT:[facility]/[address] [place], [place] ??[address]DXUKGRSALFRED HURST MD,PHD 03/06/2024 8:32 AM EST 03/06/2024 8:32 AM EST us Generic External Data Provider LAB BLOOD ORDERAB LES Final Result [facility] [address] [place] [phone] * TRAb (TSH Receptor Binding Antibody) (03/06/2024 8:32 AM EST) TRAb (TSH Receptor Binding Antibody) <1.00 <=2.00 IU/L [facility] Comment:This test was perfor med using the TRAb Antibody ELISAmethod which is standardized against the 1stInternational Standard 90/672 and is reported inInternational Units (IU/L). The reference rangereported was established specifically for this testmethod.THIS TEST WAS PERFORMED AT:[facility]/[address] [place] [address]BVNJMCGALFRED HURST MD,PHD 03/06/2024 8:32 AM EST 03/06/2024 8:32 AM EST Generic External Data Provider LAB BLOOD ORDERAB LES Final Result Performing Organization Address [facility]/ZIP Co de Phone Number [facility] [address] [place] [phone] * T3, Total (03/06/2024 8:32 AM EST) T3, Total 127 76 - 181 ng/dL [facility] Comment:THIS TEST WAS PERFOR MED AT:[facility] [address] [address]HUFASBAKARI AYOUB MD 03/06/2024 8:32 AM EST 03/06/2024 8:32 AM EST Generic External Data Provider LAB BLOOD ORDERAB LES Final Result Performing Organization Address [facility] Co de Phone Number [facility] [address] [place] [phone] * TSH (03/06/2024 8:32 AM EST) Pathologist [facility] Thyroid Stimulating Hormone 1.47 0.32 - 4.0 uIU/mL [facility] Comment:TSH 3rd Generation ( [facility]) 03/06/2024 8:32 AM EST 03/06/2024 8:32 AM EST us Generic External Data Provider LAB BLOOD ORDERAB LES Final Result Performing Organization Address [facility] de Phone Number [facility] [address] [place] [address] [phone] * T4, Free (03/06/2024 8:32 AM EST) Free T4 (Free Thyroxine) 1.01 0.71 - 1.85 ng/dL [facility] 03/06/2024 8:32 AM EST 03/06/2024 8:32 AM EST us Generic External Data Provider LAB BLOOD ORDERAB LES Final Result Performing Organization Address [facility] de Phone Number [facility] [address] [place] [address] [phone] * BI Mammogram Screening Tomosynthesis Bilateral (10/17/2023 9:45 AM EDT) Anatomical Region Laterality Modality Breast Bilateral Mammography 10/17/2023 9:45 AM EDT Narrative 10/31/2023 8:59 AM EDT ? [facility] [place] ? [address] ?[place] [address] ? Mammography Report ? Signed ? Patient: Guillen,Sandra ?MR#: [id number] ? : 1980 ?Acct:[id number] ? Age/Sex: 43 / F ?ADM Date: //24 ? Loc: HO.MAMMO ? Attending Dr: Loraine Vang MD ? Ordering Physician: Loraine Vang MD ?Results: 2Be ?? nign Findings ? Date of Service: 10/17/23 ?Follow Up: 1 Year From Orig ?? inal Mammogram ? Procedure(s): MM tomosynthesis screening BI ?? Accession Number(s): [id number] ? cc: Loraine Vang MD ? EXAMINATION: [...] DD/ 0945 ? TD/TT: 10/17/23 1005 ? Pipe Puller: ? Procedure Note Donotuseinterpreter, Image - [facility]/2023 [facility] [address] [place] [address] Mammography Report Signed Patient: Xander Guillen#: [id number] : 1980Acct:[id number] Age/Sex: 43 / FADM Date: 10/17/23 Loc: HO.MAMMO Attending Dr: Loraine Vang MD Ordering Physician: Loraine Vang MDResults: 2Be nign Findings Date of Service: 10/17/23Follow Up: 1 Year From Orig inal Mammogram Procedure(s): MM tomosynthesis screening BI Accession Number(s): [id number] cc: Loraine Vang MD EXAMINATION: MM SCREENING [...] Ena Sutherland DO 10/31/2023 08:56 AM EDT RP Dictated By: Ena Sutherland DO Signed By: <Electronically signed by Ena Sutherland DO in OV> 10/31/23 0856 DD/ 0945 TD/TT: 10/17/23 1005 Pipe Puller: us Loraine Vang MD IMG BI PROCEDURES Edited Resu lt - Final * HIV Ab/Ag ([facility]) (10/11/2022 8:21 AM EDT) HIV AB/AG Nonreactive Nonreactive [facility] Comment:HIV-1 p24 Ag and/or HIV-1/HIV-2 Ab not detected.A test result that is nonreactive does not exclude thepossibility of exposure to or infection with HIV-1 and/orHIV-2. Nonreactive results in this assay for individualswith prior exposure to HIV-1 and/or HIV-2 may be due toantigen and antibody levels that are below the limit ofdetection of this assay.The LiveRailnimycirQle HIV Ag/Ab Combo assay result andsupplemental assay results should be interpreted inconjunction with the patient's clinical presentation,history and other laboratory results. If the results areinconsistent with clinical evidence, additional testing issuggested to confirm the result. 10/11/2022 8:21 AM EDT 10/11/2022 11:16 AM EDT us Sandy Paul MD LAB BLOOD ORDERAB LES Final Result [facility] [address] [place], [place] [phone] * Hepatitis C Antibody with Reflex to HCV, RNA, Quantitative, Real-Time PCR (10/11/2022 8:21 AM EDT) Hepatitis C Antibody Nonreactive Nonreactive [facility] Comment:Antibodies to HCV no t detected; does not exclude early acuteHCV infection. Blood Venous blood specimen / Unknown 10/11/2022 8:21 AM EDT 10/11/2022 11:16 AM EDT Sandy Paul MD LAB BLOOD ORDERAB LES Final Result Performing Organization Address City/[facility]/ZIP Co de Phone Number [facility] [address] [place] [phone] [phone] * HPV mRNA E6/E7 w/Reflex to HPV Genotypes 16, 18/45 (03/01/2022 8:48 AM EST) HPV nRNA E6/E7 Not Detected Not Detected [facility] Comment:Methodology: Transcr iption-Mediated AmplificationThis assay detects E6/E7 viral messenger RNA (mRNA) from 14high-risk HPV types (16,18,31,33,35,39,45,51,52,56,58,59,66,68).Cervical sources are required for HPV testing.If a vaginal source from a patient who has had atotal hysterectomy with removal of cervix wassubmitted, please contact the testing laboratoryfor alternative testing options.For additional information, please refer tohttp://education.Oncoscope/faq/PTL913x7(This link if provided for information/educational purposes only.)THIS TEST WAS PERFORMED AT:[employer] [place] [address] ([address] [phone] AYOUB MD HPV mRNA E6/E7 [facility] HPV 16 RNA [facility] HPV 18/45 RNA [facility] 03/01/2022 8:48 AM EST 03/01/2022 1:00 PM EST [facility] External Provider LAB CYT OLOGY ORDERABLES Final Result [facility] [address] [place] [address] [phone] * Pap Smear (03/01/2022 8:48 AM EST) 03/01/2022 8:48 AM EST 03/01/2022 1:00 PM EST Narrative [facility] - 03/17/2022 3:08 PM EST ----- ------- Name: Sandra Guillen ? Age/Sex: 41/F ? : 1980 Unit#: [id number] ?? Attend Dr: Trever Ruiz MD ?Re03/01/22 ?Status: DEP REF ? Location: HO.LNP ?Disch: ? ----- ------- SPEC : [id number] ? RECD: 03/01/22-1300 ? STATUS: ??SOUT ? REQ NUM: [id number] ? VERONICA: 03/01/22-847 ? SUBM DR: Zerbe,Trever J MD ? ENTERED: ??03/01/22-1323 ?SP TYPE: Pap Smr ?OTHR DEL RIO: ? ORDERED: ??Pap Smear ? Interpretation ?? Satisfactory for evaluation. ?? No endocervical cells seen. ?? Negative for intraepithelial lesion or malignancy. ? HPV mRNA E6/E7: ?NOT DETECTED ? This assay detects E6/E7 viral messenger RNA (mRNA) from 14 high-risk HPV types (16, 18, ?? 31, 33, 35, 39, 45, 51, 52, 56, 58, 59, 66, 68) ? HPV testing performed by [facility], [place], [place]. ??See reference laboratory ?? portion of the EMR for entire report. ?Clinical Information LMP: 01/2022 Previous PAP test: 01/31/2021, Abnormal ? Material Received ?? ThinPrep-Cervical ----- ------- Signed (signature on file) Marie Alvarado Adelaide 03/17/22 2228 ? ----- ------- ? END OF REPORT ? us [facility] External Provider LAB CYT OLOGY ORDERABLES Final Result [facility] [address] [place] [address] [phone] from Last 3 Months or Most Recently Relevant to Health Maintenance Insurance HSN PARTIAL [facility] - HSN PARTIAL (MEDICAID) Care Teams C Software Engineer Relationship Specialty Start Date End Date Sandy Edwards MD [address] [place] [address] [phone] PCP - General Internal Medicine 08/11/22
== END 2024-04-17 08:40 | disposition home or self-care (01) ==
LOC: HO.ENCR 08:14
PROVIDERS: PCP Pediatrics; Visit Provider Student in an Organized Health Care Education/Training Program
DX: E05.90 Thyrotoxicosis, unspecified without thyrotoxic crisis or storm (principal)
CPT/HCPCS: 99213

== ENCOUNTER → 2024-04-17 08:13 | Outpatient (BNVA) | payer OTHER, SELFPAY | PROVIDERS: PCP Pediatrics; Visit Provider Student in an Organized Health Care Education/Training Program | DX: E05.00 Thyrotoxicosis with diffuse goiter without thyrotoxic crisis or storm (principal) | CPT/HCPCS: 99212 ==

== ENCOUNTER 2024-07-15 07:36 | Outpatient (REF) | payer OTHER, SELFPAY ==
--- OUTSIDE RECORDS SUMMARY | 2024-07-15 07:37 | XMS_ITS | Encounter Summary ---
Author Organization [employer] [facility] Address [address] [place] [address] [address] [place] [address] Care Team Providers Care Hvac Estimator Name Role Phone Sushila Brizuela Primary Care Provider [phone] Sandy Edwards MD Primary Care Pro vider Encounter Details Date Type Department Care Team (Latest Contact Info) Description 11/23/2020 Abstract [facility] CONVERSIONS Dental, Provider, DDS Social History [...] Description 07/16/2024 8:00 AM EDT Office Visit [facility] ADULT DENTAL [address] [place] [address] Mercedes Mccormack documented as of this encounter Visit Diagnoses Not on filedocumented in this encounter Care Teams Hvac Estimator Relationship Specialty Start Date End Date Sushila Brizuela FNP PCP - General Family Medicine 10/24/21 08/10/22 Sandy Edwards MD [address] [place] [address] PCP - General Internal Medicine 08/11/22 documented as of this encounter
[2024-07-15 09:12] LABS: Free T4 (Free Thyroxine) 1.01 ng/dL (0.71-1.85); Thyroid Stimulating Hormone 1.93 uIU/mL (0.32-4.0)
[2024-07-16 04:28] LABS: Triiodothyronine T3 Total 109 ng/dL (76-181)
== END 2024-07-15 07:37 | disposition home or self-care (01) ==
LOC: HO.LAB 07:36
PROVIDERS: PCP Pediatrics; Visit Provider Student in an Organized Health Care Education/Training Program
DX: E05.90 Thyrotoxicosis, unspecified without thyrotoxic crisis or storm (principal)
CPT/HCPCS: 36415; 84439; 84443; 84480

== ENCOUNTER 2024-08-18 08:39 | Outpatient (AMB) | payer OTHER, SELFPAY ==
--- OUTSIDE RECORDS SUMMARY | 2024-08-18 08:45 | XMS_ITS | Encounter Summary ---
Author Organization [employer] Address [address] [place] [address] [address] [place] [address] Care Team Providers Care Budget Examiner Name Role Phone Sushila Brizuela Primary Care Provider [phone]- [phone] Sandy Edwards MD Primary Care Pro vider Encounter Details Date Type Department Care Team (Latest Contact Info) Description 11/23/2020 Abstract [facility] Dental, Provider, DDS Social History Tobacco Use Types Packs/Day Years Used Date Smoking Tobacco: Never Assessed Comments Unknown Sex and Gender Information Value Date Recorded Sex Assigned at Female 12/05/2021 10:17 AM EDT Legal Sex Female 10:17 AM EDT Gender Identity Female 12/05/2021 10:17 AM EDT Sexual Orientation Straight 12/05/2021 10 :17 AM EDT documented as of this encounter Plan of Treatment Not on file documented as of this encounter Visit Diagnoses Not on filedocumented in this encounter Care Teams Budget Examiner Relationship Specialty Start Date End Date Sushila Brizuela FNP PCP - General Family Medicine 10/24/21 08/10/22 Sandy Edwards MD [address] [place] [address] PCP - General Internal Medicine 08/11/22 documented as of this encounter
[2024-08-18 08:52] VITALS: BP 112/62; PULSE 72; O2SAT 99; BMI 24.2
--- NOTE | 2024-08-18 08:52 | A.OFFVIS_ITS ---
Vital Signs 08/18/24 08:52 Height 5 ft 3 in Weight 136 lb 10.986 oz BMI 24.2 BP 112/62 Blood Pressure Location Lt brachial Position Sitting Pulse 72 Pulse Source Pulse Oximeter Pulse Oximetry (%) 99 Oxygen Delivery Method Room Air Intake Visit Reasons: hyperthyroidism Intake Note: Patient present today for hyperthyroidism. Student Support Advisor Services: Student Support Advisor Offered & Declined Allergies No Known Allergies Allergy (Verified 08/18/24 08:53) Medication List - Last Reconciled 08/18/24 by Adore Flood MD levonorgestrel (Mirena) intrauterine methimazole 10 mg PO DAILY 30 days HPI Comments Details: 43 YO F with who is seen for follow up for hyperthyroidism due to Graves disease. Diagnosed with Graves disease in 2021, has been on MMI since diagnosis. Currently on methimazole 15 mg daily She has appointment with Dr. Leung for eveluation of thyroidectomy on Mar 19 2024 Currently c/o dysphagia but no hoarseness of voice. Denies sensation of s welling in the neck or difficulty breathing while lying flat. [Denies] any tenderness in the neck. Denies any palpitations, tremors, weight loss, frequent bowel movements. has ocular complaints, no blurred or double vision. 2 mos ago Denies hair loss, + dry skin, -heat or cold intolerance, + weight gain, confusion. Denies any history of head or neck irradiation. Denies any family history of thyroid cancer. Family history of thyroid problems Has Mirena Use of biotin: No No use of Kelp or seaweed Has history of GUSTAVO , used to see Dr. Rico, was told doesnt need follow up , last seen 2023 Never smoker No family history of breast cancer 03/06/2024: TSH 1.47, free T4 1.01, total T3-1 27, TSI less than 89, TSH receptor antibody less than 1 all within normal limits 03/12/2024: Methimazole decreased from 15 mg daily to 10 mg daily 04/03/2024: Evaluated by Dr. Sumit Leung at [facility] for possibly total thyroidectomy but since her antibodies are negative, and blood work as within normal limits, decision was made to consider trying to wean her off methimazole to assess for remission. If she relapses, can consider definitive therapy options such as YAN or total thyroidectomy. interval history Repeat blood work would be due April, she did not do the blood work in April Most recent blood work from July 2024 showed normal TSH, free T4, total T3 denies tremors, palpitations, overall feeling well. Currently on methimazole 10 mg daily. Physical exam General: sitting comfortably in no acute distress HEENT: normocephalic/atraumatic, EOM intact, moist oral mucosa Neck: supple, symmetrical, no thyromegaly , no dorsocervical or supraclavicular fat pads Cardiac: normal heart sounds Pulm: normal breath sounds B/L, no added breath sounds Abd: not distended, no tenderness Extremities: no edema, no signs of myxedema Laboratory Tests 09/06/21 06/27/23 07/11/23 08:43 08:36 11:54 TSH 0.68 Free T4 0.89 Free T3 2.8 TSH Receptor Ab 4.97 H 1.52 Laboratory Tests 06/27/23 03/06/24 08:36 08:32 TSH 0.68 1.47 Free T4 0.89 1.01 Total T3 127 Thyroid Stim Immunoglob <89 TSH Receptor Ab <1.00 Laboratory Tests 07/15/24 07:47 TSH 1.93 Free T4 1.01 Total T3 109 PFSH Medical History Hyperthyroidism No pertinent past medical history Surgical History History of loop electrical excision procedure (LEEP) H/O breast biopsy Family History Other No known health problems Social History Household Members: Spouse and Children Household Members Other:: , 3 kids Alcohol intake: never Patient Tobacco Use Status: Never used Tobacco Current occupational status: employed 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 . 03/06/2024: TSH 1.47, free T4 1.01, total T3-1 27, TSI less than 89, TSH receptor antibody less than 1 all within normal limits 03/12/2024: Methimazole decreased from 15 mg daily to 10 mg daily 04/03/2024: Evaluated by Dr. Sumit Leung at [facility] for possibly total thyroidectomy but since her antibodies are negative, and blood work as within normal limits, decision was made to consider trying to wean her off methimazole to assess for remission. If she relapses, can consider definitive therapy options such as YAN or total thyroidectomy. Repeat blood work would be due April, she did not do the blood work in April Most recent blood work in July 2024 shows normal TSH, free T4, total T3. I discussed with her today that given her antibodies negative and blood work looks normal, she might be in remission, and we will try to slowly bring down the dose of methimazole over the next few months. I also discussed with her that once we slowly bring down the dose of methimazole, if she relapses or once she is off it and she relapses, we can consider definitive therapy options such as total thyroidectomy or radioactive iodine ablation. I explained to her need for levothyroxine hormone replacement after a total thyroidectomy. I also explained to her what is involved in radioactive iodine ablation, she does not have any active Graves orbitopathy, she is a nonsmoker, no family history of breast cancer, no personal history of cancer. I did discuss with her that she might need levothyroxine after radioactive iodine ablation as well. Patient verbalized understanding. Plan: -reduce methimazole to 5 mg daily - TSH, free T4, total T3, to be done in 6 weeks -follow up in Three months Plan I spent 30 minutes in reviewing the record, seeing the patient and documenting in the medical record. Orders: Orders Free T4 (Free Thyroxine) 6 Weeks E05.90 - Thyrotoxicosis, unspecified without thyrotoxic crisis or storm Thyroid Stimulating Hormone 6 Weeks E05.90 - Thyrotoxicosis, unspecified without thyrotoxic crisis or storm Triiodothyronine T3 Total 6 Weeks E05.90 - Thyrotoxicosis, unspecified without thyrotoxic crisis or storm Medications: New methimazole 5 mg PO DAILY 30 tabs 4RF Discontinued methimazole Discontinued Reason: Doctor's Order 10 mg PO DAILY 30 days 30 tabs 4RF E05.90 - Thyrotoxicosis, unspecified without thyrotoxic crisis or storm Patient Instructions: Reduce methimazole to 5 mg daily Do blood work in 6 weeks , we will call with results and let you know when to repeat another set of blood work Follow up with me in office in November 2024 Coding Level of Care Code Est Pt Level 4 (35052) Diagnoses Hyperthyroidism E05.90 Time Spent (min) 30
== END 2024-08-18 09:03 | disposition home or self-care (01) ==
LOC: HO.ENCR 08:40
PROVIDERS: PCP Pediatrics; Visit Provider Student in an Organized Health Care Education/Training Program
DX: E05.90 Thyrotoxicosis, unspecified without thyrotoxic crisis or storm (principal)
CPT/HCPCS: 99214

== ENCOUNTER → 2024-08-18 08:39 | Outpatient (BNVA) | payer OTHER, SELFPAY | PROVIDERS: PCP Pediatrics; Visit Provider Student in an Organized Health Care Education/Training Program | DX: E05.90 Thyrotoxicosis, unspecified without thyrotoxic crisis or storm (principal); R13.10 Dysphagia, unspecified | CPT/HCPCS: 99212 ==

== ENCOUNTER 2024-10-22 08:35 | Outpatient (REF) | payer OTHER, SELFPAY | END 2024-10-22 08:36 | disposition home or self-care (01) | LOC: HO.MAMMO 08:35 | PROVIDERS: PCP Pediatrics; Visit Provider Pediatrics | DX: Z12.31 Encounter for screening mammogram for malignant neoplasm of breast (principal) | CPT/HCPCS: 77063; 77067 ==

== ENCOUNTER → 2024-10-22 08:45 | Outpatient (BNV) | payer OTHER, SELFPAY | PROVIDERS: PCP Pediatrics; Visit Provider Internal Medicine | DX: Z12.31 Encounter for screening mammogram for malignant neoplasm of breast (principal) | CPT/HCPCS: 77063; 77067 ==